=== PATIENT | female | born 1965 | race Caucasian/White ===

== ENCOUNTER → 2016-05-26 | Day surgery (SDC) | payer OTHER ==
[2016-05-08 12:04] VITALS: BP 156/79
--- NOTE | 2016-05-15 15:28 | HP ---
ADMIT DATE: CHIEF COMPLAINT: Right nipple discharge. HISTORY OF PRESENT ILLNESS: The patient presents with a 2-year history of palpable right breast mass under her right nipple. One month ago, she noticed the onset of intermittent bloody discharge from her right nipple with some associated tenderness. She denies any other symptoms at this time including fever, chills, nausea, vomiting. The patient has a history of hypertension, for which she takes medications on a daily basis. She also has a history of arthritis and a small heart murmur, for which she takes a baby aspirin daily. She has a history of asthma and has two different types of inhalers that she uses as needed. The patient has no previous history of surgery on her breast. FAMILY HISTORY: Positive for mother who had a breast mass removed that was not cancerous. ALLERGIES: She reports an allergy to steroid medication, says that her skin gets very red when she takes steroids. PHYSICAL EXAMINATION: HEAD AND NECK: Grossly normal. HEART: Regular rate, about 70 beats per minutes, regular rhythm, no murmurs heard. LUNGS: Clear to auscultation bilaterally. No wheezes. BREASTS: Her right breast has slight tenderness around the areola with no palpable mass or discharge at this time. The patient did have a ductogram, which showed small densities under the right areola. We have discussed the benefits and complications involved with surgery with the patient and she agrees with these. DIAGNOSES: Bloody nipple discharge, hypertension and arthritis. ROJELIO CRANE MD DR: JOHNATHAN/evan JOB#: [id number] / [id number]
[~2016-05-26] VITALS: Ht 170.2 cm; Wt 81.6 kg
[~2016-05-26] MED LIST: ASPI81TA2 PO; ATOR40TA PO; CEFAZOLIN 1GM IVPB FOR OMNI 50 ML IV PRN; CONTRAST GIVEN MC PRN; CYCL10TA2 PO; FENTANYL PF 100 MCG/2 ML VIAL. IV PRN; FERR-26 PO; FLUT1DIS IH; HYDR-971 PO; IOHEXOL 300 MG/ML 50 ML VIAL. IJ ONE; IV RINGERS,LACTATED 1000ML 1,000 ML IV SCH; LIDOCAINE 1% / SOD BICARB 8.4% 20 ML VIAL. IJ ONE; LIDOCAINE 1% 1 ML SYRINGE. ID PRN; MELO-150 PO; METHYLENE BLUE 1% 1 ML VIAL. IJ ONE; OMEP40CA5 PO; ONDANSETRON PF 4 MG/2 ML VIAL. IV PRN; PROAIR HFA8.5 GM INH; PROCHLORPERAZINE 10 MG/2 ML VIAL. IV PRN; [UNRECOGNIZED DRUG - REMARK] PO
--- NOTE | 2016-05-26 10:24 | PDOC ---
SURGICAL PROGRESS NOTE Subjective SURGERY CANCELLED DUE TO SIGNIFICANT CARDIAC ISSUES. Charge Loader to see her this am. ROJELIO CRANE MD May 26, 2016 10:24
--- NOTE | 2016-05-26 11:40 | CARD ---
APPROVED REPORT EXAM: Two-dimensional and M-mode echocardiogram with Doppler and color Doppler. Other Information Quality : Average Rhythm : Tachycardia INDICATION Murmur tachycardia 2D DIMENSIONS RVDd2.3 (2.9-3.5cm)Left Atrium(2D)2.8 (1.6-4.0cm) IVSd0.9 (0.7-1.1cm)Aortic Root(2D)3.0 (2.0-3.7cm) LVDd4.7 (3.9-5.9cm)LVOT Diameter2.2 (1.8-2.4cm) PWd0.9 (0.7-1.1cm)LVDs3.8 (2.5-4.0cm) FS (%) 19.8 %SV41.5 ml LVEF(%)40.0 (>50%) Aortic Valve AoV Peak Stew.107.7cm/sAoV VTI18.8cm AO Peak GR.4.6mmHgLVOT VTI 16.33cm AO Mean GR.3mmHgAVA (VTI)3.20cm2 Mitral Valve MV E Jjvsdllm44.5cm/sMV E Peak Gr.5mmHg MV DECEL [id number] A Palhgbga67.8cm/s E/A Ratio1.6 TDI Lateral E' P. V14.55cm/sMedial E' P. V13.32cm/s E/Lateral E'5.9E/Medial E'6.5 Tricuspid Valve TR P. Vooqlmqg321kt/sRAP TUPLIMCF2ioTq TR Peak Gr.12ifDmJIVS08ozIi LEFT VENTRICLE The left ventricle is normal size. There is normal left ventricular wall thickness. Left ventricle sy stolic function is mildl to moderately impaired. The Ejection Fraction is 40%. There is global hypoki nesis of the left ventricle. RIGHT VENTRICLE The right ventricle is normal size. The right ventricular systolic function is normal. ATRIA The left atrium size is normal. The right atrium size is normal. The interatrial septum is intact wit h no evidence for an atrial septal defect or patent foramen ovale as noted on 2-D or Doppler imaging. AORTIC VALVE The aortic valve is normal in structure and function. The aortic valve is trileaflet. Doppler and Col or Flow revealed no significant aortic regurgitation. There is no significant aortic valvular stenosi s. MITRAL VALVE The mitral valve is normal in structure. There is no mitral valve stenosis. Doppler and Color Flow re vealed trace mitral regurgitation. TRICUSPID VALVE The tricuspid valve is normal in structure. Doppler and Color Flow revealed trace tricuspid regurgita tion. The PA pressure was estimated at 18 mmHg. There is no tricuspid valve stenosis. PULMONIC VALVE The pulmonic valve is not well visualized. Doppler and Color Flow revealed no pulmonic valvular regur gitation. There is no pulmonic valvular stenosis. GREAT VESSELS The aortic root is normal in size. The IVC is normal in size and collapses >50% with inspiration. PERICARDIAL EFFUSION There is a small amount of pericardial effusion. Critical Notification Critical Value: No <Conclusion> Left ventricle systolic function is mildl to moderately impaired. The Ejection Fraction is 40%. The left atrium size is normal. The right atrium size is normal. The aortic valve is normal in structure and function. The aortic valve is trileaflet. Doppler and Color Flow revealed trace mitral regurgitation. Doppler and Color Flow revealed trace tricuspid regurgitation. The PA pressure was estimated at 18 mmHg. The pulmonic valve is not well visualized. There is a small amount of pericardial effusion.
--- NOTE | 2016-05-26 12:36 | EKG ---
[facility] [address] [place] [address] Test Date: 2016-05-26 Test Time: 12:18:56 Pat Name: KARLY DENNY Department: Room: Gender: F Review Scheduling Coordinator: SALTY : 1965 Requested By: ROJELIO CRANE Order Number: [id number] Reading MD: Geo Flores Measurements Intervals [place] Rate: 100 P: 58 AK: 166 QRS: 20 QRSD: 92 T: 15 QT: 344 QTc: 447 Interpretive Statements SINUS RHYTHM Electronically Signed On 05-26-2016 15:19:45 AGRICULTURAL SYSTEMS SPECIALIST by Geo Flores
--- NOTE | 2016-05-26 14:30 | EKG ---
[facility] [address] [place] [address] Test Date: 2016-05-26 Test Time: 12:50:31 Pat Name: KARLY DENNY Department: Room: Gender: F [employer]: SALTY : 1965 Requested By: ROJELIO CRANE Order Number: [id number] Reading MD: Geo Flores Measurements Intervals [place] Rate: 67 P: 34 AK: 148 QRS: 18 QRSD: 80 T: 36 QT: 370 QTc: 394 Interpretive Statements SINUS RHYTHM Electronically Signed On 05-26-2016 15:20:19 CASE MANAGEMENT RN by Geo Flores
== END | disposition home or self-care (01) ==
LOC: SURG 06:43
PROVIDERS: ATTEND Specialist
DX: Z53.9 Procedure and treatment not carried out, unspecified reason (principal)
CPT/HCPCS: 93005; 93306

== ENCOUNTER → 2016-05-30 | Outpatient (CLI) | payer OTHER ==
[2016-05-08 12:04] VITALS: BP 156/79
[~2016-05-30] MED LIST changes: -CEFAZOLIN 1GM IVPB FOR OMNI 50 ML IV PRN; -CONTRAST GIVEN MC PRN; -FENTANYL PF 100 MCG/2 ML VIAL. IV PRN; -IOHEXOL 300 MG/ML 50 ML VIAL. IJ ONE; -IV RINGERS,LACTATED 1000ML 1,000 ML IV SCH; -LIDOCAINE 1% / SOD BICARB 8.4% 20 ML VIAL. IJ ONE; -LIDOCAINE 1% 1 ML SYRINGE. ID PRN; -METHYLENE BLUE 1% 1 ML VIAL. IJ ONE; -ONDANSETRON PF 4 MG/2 ML VIAL. IV PRN; -PROCHLORPERAZINE 10 MG/2 ML VIAL. IV PRN; +REGADENOSON 0.4 MG/5 ML DISP.SYRIN. IV ONE
--- NOTE | 2016-05-30 20:10 | RAD ---
APPROVED REPORT Test Type: Pharmacological Stress Nurse/Tech: Alejandra Alegre R.N. Test Indications: Pre-op for breast surgery Cardiac History: Family hx of CAD, HTN, ST Medications: SEE EMR Medical History: Seizures Resting ECG: ST Resting Heart Rate: 132/76 bpm Resting Blood Pressure: 132/76mmHg Pretest Chest Pain: None Nurse/Tech Notes S1S2, lungs CTA, denied chest pain or SOA. Pt states that she has baseline tachycardia. Consent: The procedure was explained to the patient in lay terms. Informed consent was witnessed. Song eout was entered into [employer]. History and Stress Test performed by Alejandra Alegre R.N. Pharm. Details Pharmacologic stress testing was performed using 0.4mg per 5ml of regadenoson given intravenously ove r 7-10 seconds. Stress Symptoms Slightly SOA. POST EXERCISE Reason for Termination: Patient request, Infusion complete Max HR: 142 bpm Max Blood Pressure: 156/84mmHg Blood Pressure response to exercise: Normal blood pressure response during stress. Heart Rate response to exercise: Normal Chest Pain: No. Arrhythmia: No. ST Change: No. INTERPRETATION Stress EKG Conclusion: No acute changes were noted. Imaging Protocol IMAGE PROTOCOL: Rest Tc-99m/stress Tc-99m 1 day Rest: Stress: Viability: Radiopharm.Tc99m MvdglccvsEn41r Sestamibi Uwuu09zQf 35mCi Duration 15min. 10min. Img Date 05/30/2016 05/30/2016 Inj-Img Jgps41xmq. 60min. Rest Admin Site:IV - Right AntecubitalAdministrator:RT Tim (R)(N) Stress Admin Site: IV - Right AntecubitalAdministrator: ADRIAN Rivera STRESS DATA End Diast. Vol.105.0mlAv. Heart Ippo843.0bpm End Syst. Vol.56.0mlCO Index BSA0.0L/min Myocardial Fpcz030.0gEject. Ouprsyqs54.0% Stress Rates Pk. Fill Rate4.85EDV/secLVtime Pk. Fill 150.79msec Pk. Empty Rate4.30ESV/secLVtime Pk. Eject86.21msec 04/29 Pk. Fill0.66EDV/sec Stress Scores Regional WT2.00Summed WT20.00 Regional WM0.00Summed WM18.00 LV Perf. Quant 17 Seg. SSS1.00 17 Seg. SRS3.00 17 Seg. SDS0.00 Stress Defect Extent (% LAD)0.00Rest Defect Extent (% LAD)0.00Rev. Defect Extent (% LAD)0.00 Stress Defect Extent (% LCX) 0.00Rest Defect Extent (% LCX)13.80Rev. Defect Extent (% LCX)0.00 Stress Defect Extent (% RCA)0.00Rest Defect Extent (% RCA)0.00Rev. Defect Extent (% RCA)0.00 Stress Defect Extent (% REY)0.00Rest Defect Extent (% REY)2.40Rev. Defect Extent (% REY)0.00 Conclusion 1. Sinus tachycardia. No electrocardiographic changes suggestive of myocardial ischemia with pharmaco logical stresss 2. No perfusion defects to suggest myocardial ischemia or scar 3. A diffuse decrease in wall motionn with an ejection fraction of 47%. 4. Scan indicates low risk for futurecardiac events.
== END | disposition home or self-care (01) ==
LOC: NM 07:34
PROVIDERS: ATTEND Internal Medicine Cardiovascular Disease
DX: Z01.818 Encounter for other preprocedural examination (principal); I10 Essential (primary) hypertension; I42.9 Cardiomyopathy, unspecified
CPT/HCPCS: 78452; 93017; 96374; 96375; 96376; A9500; J2785

== ENCOUNTER 2016-07-24 09:43 | Day surgery (SDC) | payer OTHER ==
--- NOTE | 2016-07-23 15:04 | HP ---
ADMIT DATE: 07/24/2016 HISTORY OF PRESENT ILLNESS: The patient has had nipple discharge and this is why she is admitted. She has about a 2-year history of a palpable mass in the right inferior portion of the nipple. About 2-3 months ago, she noted the onset of intermittent bloody discharge from her right nipple and had some mild tenderness. She denies any other symptoms and has not had fever, chills, vomiting etc. PAST MEDICAL AND SURGICAL HISTORY: She has a history of hypertension, which she now takes medicine for and is controlled. We aborted the previous surgery because of lack of control of her blood pressure. She also has history of arthritis and heart murmur and she takes a baby aspirin a day, which she had stopped. She does have asthma and has two different types of inhalers that she takes for that. No surgeries on the breast prior to this. FAMILY HISTORY: Positive in that she has a mother who had a cancer of the breast and apparently had a mastectomy. ALLERGIES: APPEARED TO BE TO STEROIDS. SHE SAYS SHE BREAKS OUT ON A RASH WHEN SHE TAKES THAT. SOCIAL HISTORY: She does not drink, smoke or use illicit drugs. PHYSICAL EXAMINATION: HEENT: Grossly normal. HEART: Regular rate of 72 beats per minute. No murmurs or other abnormalities were noted with the heart. LUNGS: Clear bilaterally to auscultation and no wheezing were noted. BREASTS: The breasts had no tenderness, no masses and no discharge at this time. 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 We did discuss the surgery with the patient and she wishes to have it done. DIAGNOSES: 1. Hypertension. 2. Arthritis. 3. Papillary neoplasms of the breast. All the symptoms have been in the right breast. ROJELIO CRANE MD DR: JOHNATHAN/evan JOB#: [id number] / [id number]
[~2016-07-24 09:43] MED LIST changes: +FENTANYL PF 100 MCG/2 ML VIAL. IV PRN; +IOHEXOL 300 MG/ML 50 ML VIAL. IJ ONE; +IV RINGERS,LACTATED 1000ML 1,000 ML IV SCH; +LIDOCAINE 1% 1 ML SYRINGE. ID PRN; +METHYLENE BLUE 1% 1 ML VIAL. IJ ONE; +METHYLENE BLUE 1% 1 ML VIAL. ONE; +ONDANSETRON PF 4 MG/2 ML VIAL. IV PRN; +PROCHLORPERAZINE 10 MG/2 ML VIAL. IV PRN; -REGADENOSON 0.4 MG/5 ML DISP.SYRIN. IV ONE
[2016-07-24 10:32] LABS: BASO # 0.1 x10^3/uL (0.0-0.2); BASO % 1 % (0-3); EOS % 3 % (0-3); HEMATOCRIT 40.3 % (36.0-47.0); LYMPH # 2.6 x10^3/uL (1.0-4.8); LYMPH % 29 % (24-48); MEAN CORPUSCULAR HEMOGLOBIN 30 pg (25-35); MEAN CORPUSCULAR HGB CONC 35 g/dL (31-37); MEAN CORPUSCULAR VOLUME 85 fL (79-100); MONO % 8 % (0-9); NEUT % 60 % (31-73); PLATELET COUNT 311 x10^3/uL (140-400); RED BLOOD COUNT 4.76 x10^6/uL (3.50-5.40); RED CELL DISTRIBUTION WIDTH 12.8 % (11.5-14.5); WHITE BLOOD COUNT 9.1 x10^3/uL (4.0-11.0)
[2016-07-24 10:40] LABS: NEG OBC UR NEG; POS OBC UR POS
[2016-07-24 10:43] LABS: INR 1.1 (0.8-1.1); PROTHROMBIN TIME PATIENT 13.1 SEC (11.7-14.0)
[2016-07-24 11:06] LABS: CALCIUM 8.7 mg/dL (8.5-10.1); CREATININE 0.8 mg/dL (0.6-1.0); POTASSIUM 3.5 mmol/L (3.5-5.1)
[2016-07-24 11:08] LABS: ALBUMIN 3.6 g/dL (3.4-5.0); ALBUMIN/GLOBULIN RATIO 1.1 (1.0-1.7); TOTAL BILIRUBIN 1.1 mg/dL (0.2-1.0)
--- NOTE | 2016-07-24 11:43 | PDOC ---
SURGICAL PROGRESS NOTE Subjective No change in dictated H+P. Labs Laboratory Tests Test 07/24/16 10:14 White Blood Count 9.1x10^3/uL (4.0-11.0) Red Blood Count 4.76x10^6/uL (3.50-5.40) Hemoglobin 14.0g/dL (12.0-15.5) Hematocrit 40.3% (36.0-47.0) Mean Corpuscular Volume 85fL (79-100) Mean Corpuscular Hemoglobin 30pg (25-35) Mean Corpuscular Hemoglobin Concent 35g/dL (31-37) Red Cell Distribution Width 12.8% (11.5-14.5) Platelet Count 311x10^3/uL (140-400) Neutrophils (%) (Auto) 60% (31-73) Lymphocytes (%) (Auto) 29% (24-48) Monocytes (%) (Auto) 8% (0-9) Eosinophils (%) (Auto) 3% (0-3) Basophils (%) (Auto) 1% (0-3) Neutrophils # (Auto) 5.5x10^3uL (1.8-7.7) Lymphocytes # (Auto) 2.6x10^3/uL (1.0-4.8) Monocytes # (Auto) 0.7x10^3/uL (0.0-1.1) Eosinophils # (Auto) 0.2x10^3/uL (0.0-0.7) Basophils # (Auto) 0.1x10^3/uL (0.0-0.2) Prothrombin Time 13.1SEC (11.7-14.0) Prothromb Time International Ratio 1.1 (0.8-1.1) Urine Test Negative (NEG) Sodium Level 142mmol/L (136-145) Potassium Level 3.5mmol/L (3.5-5.1) Chloride Level 103mmol/L (98-107) Carbon Dioxide Level 30mmol/L (21-32) Anion Gap 9 (6-14) Blood Urea Nitrogen 14mg/dL (7-20) Creatinine 0.8mg/dL (0.6-1.0) Estimated GFR (Cockcroft-Gault) 75.0 BUN/Creatinine Ratio 18 (6-20) Glucose Level 143mg/dL (70-99) Calcium Level 8.7mg/dL (8.5-10.1) Total Bilirubin 1.1mg/dL (0.2-1.0) Aspartate Amino Transf (AST/SGOT) 18U/L (15-37) Alanine Aminotransferase (ALT/SGPT) 20U/L (14-59) Alkaline Phosphatase 68U/L (46-116) Total Protein 7.0g/dL (6.4-8.2) Albumin 3.6g/dL (3.4-5.0) Albumin/Globulin Ratio 1.1 (1.0-1.7) Laboratory Tests Test 07/24/16 10:14 White Blood Count 9.1x10^3/uL (4.0-11.0) Red Blood Count 4.76x10^6/uL (3.50-5.40) Hemoglobin 14.0g/dL (12.0-15.5) Hematocrit 40.3% (36.0-47.0) Mean Corpuscular Volume 85fL (79-100) Mean Corpuscular Hemoglobin 30pg (25-35) Mean Corpuscular Hemoglobin Concent 35g/dL (31-37) Red Cell Distribution Width 12.8% (11.5-14.5) Platelet Count 311x10^3/uL (140-400) Neutrophils (%) (Auto) 60% (31-73) Lymphocytes (%) (Auto) 29% (24-48) Monocytes (%) (Auto) 8% (0-9) Eosinophils (%) (Auto) 3% (0-3) Basophils (%) (Auto) 1% (0-3) Neutrophils # (Auto) 5.5x10^3uL (1.8-7.7) Lymphocytes # (Auto) 2.6x10^3/uL (1.0-4.8) Monocytes # (Auto) 0.7x10^3/uL (0.0-1.1) Eosinophils # (Auto) 0.2x10^3/uL (0.0-0.7) Basophils # (Auto) 0.1x10^3/uL (0.0-0.2) Prothrombin Time 13.1SEC (11.7-14.0) Prothromb Time International Ratio 1.1 (0.8-1.1) Urine Test Negative (NEG) Sodium Level 142mmol/L (136-145) Potassium Level 3.5mmol/L (3.5-5.1) Chloride Level 103mmol/L (98-107) Carbon Dioxide Level 30mmol/L (21-32) Anion Gap 9 (6-14) Blood Urea Nitrogen 14mg/dL (7-20) Creatinine 0.8mg/dL (0.6-1.0) Estimated GFR (Cockcroft-Gault) 75.0 BUN/Creatinine Ratio 18 (6-20) Glucose Level 143mg/dL (70-99) Calcium Level 8.7mg/dL (8.5-10.1) Total Bilirubin 1.1mg/dL (0.2-1.0) Aspartate Amino Transf (AST/SGOT) 18U/L (15-37) Alanine Aminotransferase (ALT/SGPT) 20U/L (14-59) Alkaline Phosphatase 68U/L (46-116) Total Protein 7.0g/dL (6.4-8.2) Albumin 3.6g/dL (3.4-5.0) Albumin/Globulin Ratio 1.1 (1.0-1.7) ROJELIO CRANE MD Jul 24, 2016 11:43
--- NOTE | 2016-07-24 11:46 | PDOC ---
SURGICAL PROGRESS NOTE Subjective Surgeon........................................Crane Pre-op diagnosis............................Mass right breast Post-op diagnosis..........................Mass right breast Anesthesia....................................General Procedure.....................................Breast mass removal Drains...........................................none Fluids............................................See anesthesia Blood loss.....................................15cc Condition.......................................Satisfactory Labs Laboratory Tests Test 07/24/16 10:14 White Blood Count 9.1x10^3/uL (4.0-11.0) Red Blood Count 4.76x10^6/uL (3.50-5.40) Hemoglobin 14.0g/dL (12.0-15.5) Hematocrit 40.3% (36.0-47.0) Mean Corpuscular Volume 85fL (79-100) Mean Corpuscular Hemoglobin 30pg (25-35) Mean Corpuscular Hemoglobin Concent 35g/dL (31-37) Red Cell Distribution Width 12.8% (11.5-14.5) Platelet Count 311x10^3/uL (140-400) Neutrophils (%) (Auto) 60% (31-73) Lymphocytes (%) (Auto) 29% (24-48) Monocytes (%) (Auto) 8% (0-9) Eosinophils (%) (Auto) 3% (0-3) Basophils (%) (Auto) 1% (0-3) Neutrophils # (Auto) 5.5x10^3uL (1.8-7.7) Lymphocytes # (Auto) 2.6x10^3/uL (1.0-4.8) Monocytes # (Auto) 0.7x10^3/uL (0.0-1.1) Eosinophils # (Auto) 0.2x10^3/uL (0.0-0.7) Basophils # (Auto) 0.1x10^3/uL (0.0-0.2) Prothrombin Time 13.1SEC (11.7-14.0) Prothromb Time International Ratio 1.1 (0.8-1.1) Urine Test Negative (NEG) Sodium Level 142mmol/L (136-145) Potassium Level 3.5mmol/L (3.5-5.1) Chloride Level 103mmol/L (98-107) Carbon Dioxide Level 30mmol/L (21-32) Anion Gap 9 (6-14) Blood Urea Nitrogen 14mg/dL (7-20) Creatinine 0.8mg/dL (0.6-1.0) Estimated GFR (Cockcroft-Gault) 75.0 BUN/Creatinine Ratio 18 (6-20) Glucose Level 143mg/dL (70-99) Calcium Level 8.7mg/dL (8.5-10.1) Total Bilirubin 1.1mg/dL (0.2-1.0) Aspartate Amino Transf (AST/SGOT) 18U/L (15-37) Alanine Aminotransferase (ALT/SGPT) 20U/L (14-59) Alkaline Phosphatase 68U/L (46-116) Total Protein 7.0g/dL (6.4-8.2) Albumin 3.6g/dL (3.4-5.0) Albumin/Globulin Ratio 1.1 (1.0-1.7) Laboratory Tests Test 07/24/16 10:14 White Blood Count 9.1x10^3/uL (4.0-11.0) Red Blood Count 4.76x10^6/uL (3.50-5.40) Hemoglobin 14.0g/dL (12.0-15.5) Hematocrit 40.3% (36.0-47.0) Mean Corpuscular Volume 85fL (79-100) Mean Corpuscular Hemoglobin 30pg (25-35) Mean Corpuscular Hemoglobin Concent 35g/dL (31-37) Red Cell Distribution Width 12.8% (11.5-14.5) Platelet Count 311x10^3/uL (140-400) Neutrophils (%) (Auto) 60% (31-73) Lymphocytes (%) (Auto) 29% (24-48) Monocytes (%) (Auto) 8% (0-9) Eosinophils (%) (Auto) 3% (0-3) Basophils (%) (Auto) 1% (0-3) Neutrophils # (Auto) 5.5x10^3uL (1.8-7.7) Lymphocytes # (Auto) 2.6x10^3/uL (1.0-4.8) Monocytes # (Auto) 0.7x10^3/uL (0.0-1.1) Eosinophils # (Auto) 0.2x10^3/uL (0.0-0.7) Basophils # (Auto) 0.1x10^3/uL (0.0-0.2) Prothrombin Time 13.1SEC (11.7-14.0) Prothromb Time International Ratio 1.1 (0.8-1.1) Urine Test Negative (NEG) Sodium Level 142mmol/L (136-145) Potassium Level 3.5mmol/L (3.5-5.1) Chloride Level 103mmol/L (98-107) Carbon Dioxide Level 30mmol/L (21-32) Anion Gap 9 (6-14) Blood Urea Nitrogen 14mg/dL (7-20) Creatinine 0.8mg/dL (0.6-1.0) Estimated GFR (Cockcroft-Gault) 75.0 BUN/Creatinine Ratio 18 (6-20) Glucose Level 143mg/dL (70-99) Calcium Level 8.7mg/dL (8.5-10.1) Total Bilirubin 1.1mg/dL (0.2-1.0) Aspartate Amino Transf (AST/SGOT) 18U/L (15-37) Alanine Aminotransferase (ALT/SGPT) 20U/L (14-59) Alkaline Phosphatase 68U/L (46-116) Total Protein 7.0g/dL (6.4-8.2) Albumin 3.6g/dL (3.4-5.0) Albumin/Globulin Ratio 1.1 (1.0-1.7) ROJELIO CRANE MD Jul 24, 2016 11:46
[2016-07-24] MEDS ORDERED: CEFAZOLIN 1GM IVPB FOR OMNI 50 ML IV ONE ×2 (12:03→12:15)
[2016-07-24] MEDS ORDERED: DEXAMETHASONE SOD PHOS 20 MG/5 ML VIAL. ONE (12:16)
[2016-07-24] MEDS ORDERED: ONDANSETRON PF 4 MG/2 ML VIAL. ONE (12:16)
[2016-07-24] MEDS ORDERED: MIDAZOLAM HCL/PF 2 MG/2 ML VIAL. ONE (12:16)
[2016-07-24] MEDS ORDERED: LIDOCAINE 2% 100 MG/5 ML DISP.SYRIN. ONE (12:16)
[2016-07-24] MEDS ORDERED: PROPOFOL 20 ML IV ONE (12:16)
[2016-07-24] MEDS ORDERED: FENTANYL PF 100 MCG/2 ML VIAL. ONE (12:17)
[2016-07-24] MEDS ORDERED: SEVOFLURANE 61 TO 120 MINUTES. IH ONE (13:19)
[2016-07-24] MEDS ORDERED: PHENYLEPHRINE in 0.9% NACL PF 1 MG/10 ML DISP.SYRIN. IV ONE (13:30)
--- NOTE | 2016-07-24 14:06 | RAD ---
EXAM: Right breast galactogram; right breast needle-wire localization; surgical specimen radiograph. 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 TECHNIQUE: The risks of the procedure were discussed with the patient and written and verbal consent was obtained. A timeout was performed. The right nipple and skin surrounding the right nipple was sterilely prepped and draped. A small amount of blood-tinged fluid was expressed from a duct within the nipple. This duct was cannulated with a blunt-tipped 30-gauge needle. 1 cc of contrast mixed with methylene blue was injected. Craniocaudal and true lateral images were obtained, demonstrating opacification of irregular dilated ducts predominantly within the retroareolar to 6:00 positions. There is persistent contrast within acini within the 6:00 position at mid to posterior depth from the prior exam. The skin overlying the medial breast with an prepped and infiltrated with 1% lidocaine. A needle was advanced through and slightly beyond the posterior margin of the main region of ductal dilatation from a medial approach. A wire was deployed in this location. Appropriate wire positioning was confirmed by the presence of methylene blue on the needle tip following wire deployment. Full field digital chronic caudal and true lateral images were obtained. The wire was secured to the skin surface. The patient was then transferred to the operative suite. A surgical specimen radiograph demonstrates inclusion of the wire and surrounding density consistent with a portion of the aforementioned dilated ducts. IMPRESSION: 1. Successful galactogram with methylene blue injection, demonstrating multiple dilated irregular ducts predominantly from the retroareolar to 6:00 positions within the anterior breast. 2. Needle-wire localization with the wire tip along the lateral most aspect of the abnormal ducts and along the posterior aspect of the majority of the abnormal ducts at the conclusion of a large component of these ducts with a surgical specimen.
[2016-07-24] MEDS ORDERED: HYDROCODONE/APAP 5/325MG TABLET. PO ONE (14:30)
[2016-07-24 15:15] VITALS: BP 111/68
--- NOTE | 2016-07-25 01:23 | OP ---
DATE OF SURGERY: 07/24/2016 SURGEON: Rajesh Crane MD PREOPERATIVE DIAGNOSIS: Masses of right breast. POSTOPERATIVE DIAGNOSIS: Masses of right breast. ANESTHESIA: General. PROCEDURE: Excision of masses, right breast via needle localization. TECHNIQUE: Under general anesthesia, the patient was properly prepped and draped in a routine fashion. We had gone over the x-rays as the patient had a lot of ductal problems and masses and these were actually localized by the radiologist and a guidewire placed just posterior to them as they were under the nipple. She injected methylene blue through the nipple and the ducts were given methylene blue. The guidewire was medial to the nipple at about the 3 o'clock position by about an inch. We decided we will go around the circumareolar area so that we have a good cosmetic result. As such, we made an incision between about the 11 and 5 o'clock position with a 15 blade. We went through the skin with the blade. We then went into the subQ and then with retractor Jermain, we were able to retract the skin and go into the subQ over to the guidewire, delivered the guidewire into the wound and then used Jermain retractors and then Blackburn's as we got further in as we clamped the tissue around the guidewire in the guidewire, pulled it up slightly and then divided the tissue around the guidewire. As we got deeper, we saw a lot of methylene blue in the ducts under the nipple and we included all of the area that we saw that had methylene blue. This was where the problem was and we then slowly used cautery to go around there. One or two bleeders were cauterized and we slowly excised all this from the underside of the nipple. We excised all the breast tissue and all the methylene blue where the guidewire was. This having been done, we then inspected the wound. There was no further bleeding and we sent specimen to x-ray. As the lesion could not be seen on x-ray, it could not be determined, but the radiologist did say that she was sure that "I got the area out as I had where the ducts were, where the methylene blue had stained." We then proceeded to close the wound; 4-0 and 3-0 Vicryl interrupted were used to close the layers deep in the breast tissue to approximate them and then the skin was closed using a subcuticular 5-0 Vicryl. Procedure was then terminated as a sterile dressing was applied. ESTIMATED BLOOD LOSS: Probably less than 10-15 mL. DRAINS: No drains were used. FLUIDS GIVEN: Can be obtained from the anesthesia sheet. CONDITION OF THE PATIENT: Satisfactory as she is returned to the recovery room. RAJESH CRANE MD DR: JOHNATHAN/evan JOB#: [id number] / [id number]
== END 2016-07-24 15:30 | disposition home or self-care (01) ==
LOC: SURG 09:43
PROVIDERS: ATTEND Specialist
DX: N63 Unspecified lump in breast (principal); E78.00 Pure hypercholesterolemia, unspecified; I10 Essential (primary) hypertension; J45.909 Unspecified asthma, uncomplicated; E66.9 Obesity, unspecified; M19.90 Unspecified osteoarthritis, unspecified site; K21.9 Gastro-esophageal reflux disease without esophagitis; Z98.51 Tubal ligation status; Z90.49 Acquired absence of other specified parts of digestive tract; Z79.01 Long term (current) use of anticoagulants
CPT/HCPCS: 19030; 19125; 19281; 36415; 76098; 77053; 80053; 81025; 85027; 85610; J0690; J1100; J2250; J2370; J2405; J2704; J3010; Q9967; Q9968

== ENCOUNTER 2016-11-07 11:36 | Emergency (ER) | payer OTHER ==
[~2016-11-07] VITALS: Ht 170.2 cm; Wt 81.6 kg
[~2016-11-07 11:36] MED LIST changes: +ASPI-630 PO; -ASPI81TA2 PO; -FENTANYL PF 100 MCG/2 ML VIAL. IV PRN; -IOHEXOL 300 MG/ML 50 ML VIAL. IJ ONE; -IV RINGERS,LACTATED 1000ML 1,000 ML IV SCH; -LIDOCAINE 1% 1 ML SYRINGE. ID PRN; -MELO-150 PO; +MELO15TA23 PO; -METHYLENE BLUE 1% 1 ML VIAL. IJ ONE; -METHYLENE BLUE 1% 1 ML VIAL. ONE; -ONDANSETRON PF 4 MG/2 ML VIAL. IV PRN; -PROCHLORPERAZINE 10 MG/2 ML VIAL. IV PRN
--- NOTE | 2016-11-07 12:05 | RAD ---
Exam: Left knee radiograph 11/07/2016 1157 hours Indication: Knee pain Comparison: Left knee radiograph 08/20/2015 Technique: 4 views of the left knee are provided. Findings: Stable appearance of medial joint space narrowing. There is medial and lateral femorotibial osteophytosis. Patellofemoral osteophytosis is present. No acute fracture or dislocation. Patella is well seated within the femoral trochlea. No significant knee joint effusion. Impression: No acute fracture or dislocation. Mild osteoarthrosis of the left knee, stable dating back to 08/20/2015.
[2016-11-07 12:20] VITALS: BP 142/89
[2016-11-07] MEDS ORDERED: HYDR-971 PO (12:39)
--- NOTE | 2016-11-07 12:41 | PHYS DOC ---
Past Medical History Past Medical History: Asthma, GERD, Hypertension, Other Additional Past Medical Histor: CYST IN RIGHT BREAST, IRREGULAR HEART BEAT Past Surgical History: Cholecystectomy, Tubal ligation Alcohol Use: Occasionally Drug Use: None Adult General Chief Complaint Chief Complaint: KNEE SWELLING HPI HPI Patient is a 51 year old female with history of hypertension, high cholesterol , asthma, arthritis to the left knee, who presents today with moderate pain to the left knee. She states this pain has been worse in the last 2 days. Patient denies any known injury. Review of Systems Review of Systems Constitutional: Denies fever or chills [] Musculoskeletal: Left knee pain Integument: Denies rash or skin lesions [] Neurologic: Denies headache, focal weakness or sensory changes [] Endocrine: Denies polyuria or polydipsia [] Allergies Allergies Allergies Coded Allergies Type Severity Reaction Last Updated Verified meclizine Allergy Intermediate Itching 07/24/16 Yes prednisone Allergy Intermediate Itching 07/24/16 Yes tramadol Allergy Intermediate 07/24/16 Yes Physical Exam Physical Exam Constitutional: Well developed, well nourished, no acute distress, non-toxic appearance. [] Skin: Warm, dry, no erythema, no rash. [] Back: No tenderness, no CVA tenderness. [] Extremities: Left knee with no obvious deformity, no obvious edema or ecchymosis. Tenderness diffusely on palpation of the left anterior knee. Negative Jassi sign and negative Jaky's sign negative anterior-posterior drawer sign. Patient able to hold the left knee straight with no difficulties. + 2 left pedal pulse. Cap refill less than 2 seconds and left lower extremity. Sensation intact to the left lower extremity. Neurologic: Alert and oriented X 3, normal motor function, normal sensory function, no focal deficits noted. [] Psychologic: Affect normal, judgement normal, mood normal. [] EKG EKG [] Radiology/Procedures Radiology/Procedures []PROCEDURE: KNEE LEFT 4V Exam: Left knee radiograph 11/07/2016 1157 hours Indication: Knee pain Comparison: Left knee radiograph 08/20/2015 Technique: 4 views of the left knee are provided. Findings: Stable appearance of medial joint space narrowing. There is medial and lateral femorotibial osteophytosis. Patellofemoral osteophytosis is present. No acute fracture or dislocation. Patella is well seated within the femoral trochlea. No significant knee joint effusion. Impression: No acute fracture or dislocation. Mild osteoarthrosis of the left knee, stable dating back to 08/20/2015. DICTATED and SIGNED BY: MITCH FRANZ MD DATE: 11/07/16 1201 CC: ONEIL DOMINGUEZ; CHRISTINE KUMAR APRN ~ Course & Med Decision Making Course & Med Decision Making Pertinent Labs and Imaging studies reviewed. (See chart for details) Patient is in the ED with exacerbation of chronic left knee pain. No known injury. X-rays of the left knee interpreted by radiologist were negative for any acute findings but noted for mild osteoarthritis of the left knee. Discharged with instructions to follow-up with an orthopedic doctor which we provided. Dragon Disclaimer Dragon Disclaimer This electronic medical record was generated, in whole or in part, using a voice recognition dictation system. Departure Departure Impression: Primary Impression: Degenerative joint disease of knee, left Disposition: 01 HOME, SELF-CARE Condition: STABLE Referrals: NO PCP (PCP) JEANNIE CESAR MD follow up as soon as you can Patient Instructions: Arthritis, Degenerative-Brief Additional Instructions: You were seen with arthritis of the left knee. Ice and elevate the extremity. Follow-up with the provided orthopedic doctor in the next 1-2 weeks. Take the prescribed pain medicine as needed. Scripts Hydrocodone/Apap 5-325 (NORCO 5-325 TABLET) 1 Each Tablet 1 TAB PO PRN Q6HRS Y for PAIN, #10 TAB 0 Refills DO NOT FILL IF SHE HAS HARD NARCOTICS RX FILLED IN THE LAST SEVEN DAYS Prov: CHRISTINE KUMAR APRN 11/07/16 Problem Qualifiers Primary Impression: Degenerative joint disease of knee, left Osteoarthritis type: unspecified Qualified Codes: M17.12 - Unilateral primary osteoarthritis, left knee CHRISTINE KUMAR APRN Nov 07, 2016 12:41
== END 2016-11-07 12:50 | disposition home or self-care (01) ==
LOC: ER 11:36
DX: M17.12 Unilateral primary osteoarthritis, left knee (principal); E78.00 Pure hypercholesterolemia, unspecified; G89.29 Other chronic pain; I10 Essential (primary) hypertension; J45.909 Unspecified asthma, uncomplicated; K21.9 Gastro-esophageal reflux disease without esophagitis; Z90.49 Acquired absence of other specified parts of digestive tract; Z98.51 Tubal ligation status; Z88.6 Allergy status to analgesic agent; Z88.8 Allergy status to other drugs, medicaments and biological substances
CPT/HCPCS: 73564; 99284

== ENCOUNTER 2016-12-03 19:37 | Emergency (ER) | payer OTHER ==
[~2016-12-03] VITALS: Ht 170.2 cm; Wt 81.6 kg
[2016-12-03 19:51] VITALS: BP 157/77
[2016-12-03] MEDS ORDERED: CYCLOBENZAPRINE 10 MG TABLET. PO ONE (20:15)
[2016-12-03] MEDS ORDERED: CYCL10TA2 PO (20:21)
[2016-12-03] MEDS ORDERED: METO50TA2 PO (20:21)
[2016-12-03] MEDS ORDERED: FLUT1DIS IH (20:21)
[2016-12-03] MEDS ORDERED: MELO15TA23 PO (20:21)
--- NOTE | 2016-12-03 20:21 | PHYS DOC ---
Past Medical History Past Medical History: Asthma, GERD, Hypertension, Other Additional Past Medical Histor: CYST IN RIGHT BREAST, IRREGULAR HEART BEAT Past Surgical History: Cholecystectomy, Tubal ligation, Other Additional Past Surgical Histo: R)breast tumor removed. Alcohol Use: Occasionally Drug Use: None Adult General Chief Complaint Chief Complaint: BREAST PAIN/INJURY HPI HPI Patient is a 51 year old female with history of hypertension, asthma and hypertension who presents complaining of increased right breast pain. Patient states she had a tumor removed from her right breast in June 2016. She states she's had intermittent pain since then but it got worse a couple days ago when she ran out of her medications including meloxicam and cyclobenzaprine. She is also out of her blood pressure medicines including metoprolol as well as Advair for her asthma. She states she is having a hard time getting a hold of her PCP. Patient denies any drainage from the breast. Review of Systems Review of Systems Constitutional: Denies fever or chills [] Eyes: Denies change in visual acuity, redness, or eye pain [] HENT: Denies nasal congestion or sore throat [] Respiratory: Denies cough or shortness of breath [] Cardiovascular: No additional information not addressed in HPI [] GI: Denies abdominal pain, nausea, vomiting, bloody stools or diarrhea [] : Denies dysuria or hematuria [] Musculoskeletal: Denies back pain or joint pain [] Integument: Right breast pain Neurologic: Denies headache, focal weakness or sensory changes [] Endocrine: Denies polyuria or polydipsia [] Current Medications Current Medications Current Medications Medications (Trade) Dose Ordered Sig/Scott Start Time Stop Time Status Last Admin Dose Admin Cyclobenzaprine HCl (Flexeril) 10 mg 1X ONCE 12/03/16 20:15 12/03/16 20:16 UNV Allergies Allergies Allergies Coded Allergies Type Severity Reaction Last Updated Verified meclizine Allergy Intermediate Itching 07/24/16 Yes prednisone Allergy Intermediate Itching 07/24/16 Yes tramadol Allergy Intermediate 07/24/16 Yes Physical Exam Physical Exam Constitutional: Well developed, well nourished, no acute distress, non-toxic appearance. [] HENT: Normocephalic, atraumatic, bilateral external ears normal, oropharynx moist, no oral exudates, nose normal. [] Eyes: PERRLA, EOMI, conjunctiva normal, no discharge. [] Neck: Normal range of motion, no tenderness, supple, no stridor. [] Cardiovascular:Heart rate regular rhythm, no murmur [] Lungs & Thorax: Bilateral breath sounds clear to auscultation [] Abdomen: Bowel sounds normal, soft, no tenderness, no masses, no pulsatile masses. [] Skin: Right breast with no obvious dimpling, no redness. No tenderness on palpation of the right breast. No drainage from the right breast. Back: No tenderness, no CVA tenderness. [] Extremities: No tenderness, no cyanosis, no clubbing, ROM intact, no edema. [] Neurologic: Alert and oriented X 3, normal motor function, normal sensory function, no focal deficits noted. [] Psychologic: Affect normal, judgement normal, mood normal. [] EKG EKG [] Radiology/Procedures Radiology/Procedures [] Course & Med Decision Making Course & Med Decision Making Pertinent Labs and Imaging studies reviewed. (See chart for details) Patient is in the ED complaining of right breast pain that began in June after she had a tumor removed from her breast. She is out of her medications including cyclobenzaprine and meloxicam. She is also out of her blood pressure medicine metoprolol as well as asthma medicine and Advair. Prescriptions were given to her. She is to follow-up with her own doctor. Katja Disclaimer Katja Disclaimer This electronic medical record was generated, in whole or in part, using a voice recognition dictation system. Departure Departure Impression: Primary Impression: Breast pain, right Additional Impression: Medication refill Disposition: 01 HOME, SELF-CARE Condition: STABLE Referrals: NO PCP (PCP) Follow-up with your primary care doctor as well as your breast surgeon as soon as possible Patient Instructions: Breast Biopsy, [id number] Additional Instructions: You were seen for right breast pain as well as medication refills. Try and contact your primary care doctor as well as a breast surgeon as soon as possible and follow-up. Do not drive or operate machinery on cyclobenzaprine. Scripts Cyclobenzaprine Hcl (CYCLOBENZAPRINE HCL) 10 Mg Tablet 1 TAB PO TID, #60 TAB Prov: MUTUNGACHRISTINE I&C TECH 12/03/16 Meloxicam (MELOXICAM) 15 Mg Tablet 1 TAB PO DAILY, #30 TAB 0 Refills Prov: MUTUNGA,CHRISTINE I&C TECH 12/03/16 Fluticasone/Salmeterol (ADVAIR 100-50 DISKUS) 1 Each Disk.w.dev 1 PUFF IH BID, #1 INHALER 1 Refill Prov: CHRISTINE KUMAR APRN 12/03/16 Metoprolol Tartrate (METOPROLOL TARTRATE) 50 Mg Tablet 1 TAB PO BID, #60 TAB 0 Refills Prov: CHRISTINE KUMAR APRN 12/03/16 Problem Qualifiers CHRISTINE KUMAR APRN Dec 03, 2016 20:21
== END 2016-12-03 20:33 | disposition home or self-care (01) ==
LOC: ER 19:37
DX: N64.4 Mastodynia (principal); Z76.0 Encounter for issue of repeat prescription; K21.9 Gastro-esophageal reflux disease without esophagitis; J45.909 Unspecified asthma, uncomplicated; I10 Essential (primary) hypertension; Z90.49 Acquired absence of other specified parts of digestive tract; Z98.51 Tubal ligation status; Z88.5 Allergy status to narcotic agent; Z88.8 Allergy status to other drugs, medicaments and biological substances; Z98.890 Other specified postprocedural states
CPT/HCPCS: 99283

== ENCOUNTER 2017-01-07 21:04 | Emergency (ER) | payer OTHER ==
[~2017-01-07] VITALS: Ht 170.2 cm; Wt 72.6 kg
[~2017-01-07 21:04] MED LIST changes: +METO50TA2 PO
[2017-01-07 21:20] VITALS: BP 161/89
[2017-01-07] MEDS ORDERED: CYCLOBENZAPRINE 10 MG TABLET. PO ONE (22:00)
[2017-01-07] MEDS ORDERED: CYCL10TA2 PO (22:28)
--- NOTE | 2017-01-07 22:29 | PHYS DOC ---
Past Medical History Past Medical History: Asthma, GERD, Hypertension, Seizure, Other Additional Past Medical Histor: CYST IN RIGHT BREAST, IRREGULAR HEART BEAT Past Surgical History: Cholecystectomy, Tubal ligation, Other Additional Past Surgical Histo: R)breast tumor removed. Alcohol Use: Occasionally Drug Use: None Adult General Chief Complaint Chief Complaint: ELBOW PROBLEM HPI HPI Patient is a 51 year old female with hx of HTN, Asthma who presents with left elbow pain, that begun a few minutes prior to coming to the Ed. patient states she stretched her left elbow and heard a pop sound from it. Review of Systems Review of Systems Constitutional: Denies fever or chills [] Musculoskeletal: Left elbow pain Integument: Denies rash or skin lesions [] Neurologic: Denies headache, focal weakness or sensory changes [] Current Medications Current Medications Current Medications Medications (Trade) Dose Ordered Sig/Scott Start Time Stop Time Status Last Admin Dose Admin Cyclobenzaprine HCl (Flexeril) 10 mg 1X ONCE 01/07/17 22:00 01/07/17 22:01 DC 01/07/17 21:48 10 MG Allergies Allergies Allergies Coded Allergies Type Severity Reaction Last Updated Verified meclizine Allergy Intermediate Itching 07/24/16 Yes prednisone Allergy Intermediate Itching 07/24/16 Yes tramadol Allergy Intermediate 07/24/16 Yes Physical Exam Physical Exam Constitutional: Well developed, well nourished, no acute distress, non-toxic appearance. [] Skin: Warm, dry, no erythema, no rash. [] Back: No tenderness, no CVA tenderness. [] Extremities: Left elbow with no obvious deformity. No tenderness on palpation of the left elbow. Full passive range of motion to the left elbow. +2 left radial pulse. Adequate radial medial and ulnar sensation to the left upper extremity. Cap refill less than 2 seconds the left fingers. Neurologic: Alert and oriented X 3, normal motor function, normal sensory function, no focal deficits noted. [] Psychologic: Affect normal, judgement normal, mood normal. [] Current Patient Data Vital Signs Vital Signs Date Time Temp Pulse Resp B/P (MAP) Pulse Ox O2 Delivery O2 Flow Rate FiO2 01/07/17 21:20 97.8 92 20 96 Room Air 97.8 EKG EKG [] Radiology/Procedures Radiology/Procedures [] Course & Med Decision Making Course & Med Decision Making Pertinent Labs and Imaging studies reviewed. (See chart for details) Patient is in the ED with left elbow pain that began today after she stretched her left elbow. Left elbow x-rays interpreted by Dr. Baptiste were negative for any acute findings. She likely sprained her elbow. Karson wrap applied to the left elbow by the radioactivity technician, neurovascular exam is intact. Ice elevation encouraged. Naproxen and cyclobenzaprine for pain. Follow-up with PCP or orthopedic doctor in a week. Dragon Disclaimer Dragon Disclaimer This electronic medical record was generated, in whole or in part, using a voice recognition dictation system. Departure Departure Impression: Primary Impression: Sprain of left elbow Disposition: HOME, SELF-CARE Condition: STABLE Referrals: NO PCP (PCP) MICHAEL WILKINS II, MD Follow up in one week if pain continues Patient Instructions: Joint Sprain Additional Instructions: You were seen for left elbow sprain. Ice and elevate the extremity. Take the prescribed medicines as needed for pain including naproxen. Follow-up with your doctor or the provided orthopedic doctor in one week. Wear the Karson wrap as tolerated. Scripts Cyclobenzaprine Hcl (CYCLOBENZAPRINE HCL) 10 Mg Tablet 1 TAB PO TID, #30 TAB Prov: CHRISTINE KUMAR APRN 01/07/17 Problem Qualifiers Primary Impression: Sprain of left elbow Encounter type: initial encounter Qualified Codes: S53.402A - Unspecified sprain of left elbow, initial encounter CHRISTINE KUMAR APRN Jan 07, 2017 22:29
--- NOTE | 2017-01-08 07:39 | RAD ---
Indication injury, pain. AP oblique and lateral views of the left elbow were obtained. No bony abnormality is seen
== END 2017-01-07 22:40 | disposition home or self-care (01) ==
LOC: ER 21:04
DX: S53.402A Unspecified sprain of left elbow, initial encounter (principal); J45.909 Unspecified asthma, uncomplicated; I10 Essential (primary) hypertension; K21.9 Gastro-esophageal reflux disease without esophagitis; Z90.49 Acquired absence of other specified parts of digestive tract; Z98.51 Tubal ligation status; Z88.5 Allergy status to narcotic agent; Z88.8 Allergy status to other drugs, medicaments and biological substances; X50.9XXA Other and unspecified overexertion or strenuous movements or postures, initial encounter; Y93.89 Activity, other specified; Y99.8 Other external cause status; Y92.89 Other specified places as the place of occurrence of the external cause
CPT/HCPCS: 73080; 99284

== ENCOUNTER → 2017-05-11 | Outpatient (CLI) | payer OTHER | END | disposition home or self-care (01) | LOC: MAMMO 11:10 | DX: Z12.31 Encounter for screening mammogram for malignant neoplasm of breast (principal) | CPT/HCPCS: 77067 ==

== ENCOUNTER 2017-06-10 14:34 | Emergency (ER) | payer OTHER | END 2017-06-10 16:33 | disposition home or self-care (01) | LOC: ER 14:34 | DX: R09.1 Pleurisy (principal); J45.909 Unspecified asthma, uncomplicated; K21.9 Gastro-esophageal reflux disease without esophagitis; I10 Essential (primary) hypertension; Z90.49 Acquired absence of other specified parts of digestive tract; Z98.51 Tubal ligation status; Z88.8 Allergy status to other drugs, medicaments and biological substances; Z88.5 Allergy status to narcotic agent | CPT/HCPCS: 71046; 99284-25 ==

== ENCOUNTER 2017-11-04 05:23 | Emergency (ER) | payer OTHER ==
[2017-11-04] MEDS: IV NORMAL SALINE 500ML BAG 500 ML IV (06:30)
[2017-11-04] MEDS: ONDANSETRON PF 4 MG/2 ML VIAL. IV (06:30)
[2017-11-04 06:34] LABS: ADD MAN DIFF? NO
[2017-11-04 06:36] LABS: BILIRUBIN,URINE NEGATIVE (NEG); CLARITY,URINE CLEAR; COLOR,URINE YELLOW; GLUCOSE,URINE NEGATIVE (NEG); NITRITE,URINE NEGATIVE (NEG); PROTEIN,URINE NEGATIVE (NEG-TRACE); UROBILINOGEN,URINE 0.2 mg/dL (0.2 mg/dL)
[2017-11-04 06:42] LABS: BARBITURATES NEG (NEG); BENZODIAZEPINES NEG (NEG); CANNABINOIDS NEG (NEG); COCAINE NEG (NEG); METHADONE NEG (NEG); OPIATES NEG (NEG); PHENCYCLIDINE NEG (NEG)
[2017-11-04 06:46] LABS: AMPHETAMINE/METHAMPHETAMINE NEG (NEG); ETHANOL, URINE NEG (NEG)
[2017-11-04 06:51] LABS: ANION GAP 8 (6-14); BLOOD UREA NITROGEN 17 mg/dL (7-20); BUN/CREATININE RATIO 14 (6-20); CALCIUM 8.6 mg/dL (8.5-10.1); CARBON DIOXIDE 28 mmol/L (21-32); CHLORIDE 102 mmol/L (98-107); CREATININE 1.2 mg/dL (0.6-1.0); GFR 46.8; GLUCOSE 178 mg/dL (70-99); SODIUM 138 mmol/L (136-145)
[2017-11-04 06:58] LABS: ALBUMIN 3.7 g/dL (3.4-5.0); ALBUMIN/GLOBULIN RATIO 1.1 (1.0-1.7); ALK PHOS 88 U/L (46-116); ALT (SGPT) 25 U/L (14-59); AST (SGOT) 19 U/L (15-37); LIPASE 73 U/L (73-393); TOTAL BILIRUBIN 0.6 mg/dL (0.2-1.0)
[2017-11-04 07:02] LABS: BACTERIA,URINE 0 /HPF (0-FEW); RBC,URINE 0 /HPF (0-2); SQUAMOUS EPITHELIAL CELL,UR FEW /LPF; WBC,URINE OCC /HPF (0-4)
[2017-11-04 07:05] LABS: TROPONINI < 0.017 ng/mL (0.000-0.055)
[2017-11-04 07:09] LABS: BASO # 0.1 x10^3/uL (0.0-0.2); BASO % 1 % (0-3); EOS # 0.3 x10^3/uL (0.0-0.7); EOS % 3 % (0-3); HEMATOCRIT 38.8 % (36.0-47.0); HEMOGLOBIN 13.7 g/dL (12.0-15.5); LYMPH # 2.3 x10^3/uL (1.0-4.8); LYMPH % 24 % (24-48); MEAN CORPUSCULAR HEMOGLOBIN 30 pg (25-35); MEAN CORPUSCULAR HGB CONC 35 g/dL (31-37); MEAN CORPUSCULAR VOLUME 85 fL (79-100); MONO # 0.7 x10^3/uL (0.0-1.1); MONO % 7 % (0-9); NEUT # 6.2 x10^3uL (1.8-7.7); NEUT % 65 % (31-73); PLATELET COUNT 314 x10^3/uL (140-400); RED BLOOD COUNT 4.58 x10^6/uL (3.50-5.40); WHITE BLOOD COUNT 9.6 x10^3/uL (4.0-11.0)
[2017-11-04] MEDS: FAMOTIDINE 20 MG/2 ML VIAL IVP (08:24)
== END 2017-11-04 08:35 | disposition home or self-care (01) ==
LOC: ER 05:23
DX: K21.9 Gastro-esophageal reflux disease without esophagitis (principal); E86.0 Dehydration; R00.0 Tachycardia, unspecified; J45.909 Unspecified asthma, uncomplicated; E78.00 Pure hypercholesterolemia, unspecified; I10 Essential (primary) hypertension; Z90.49 Acquired absence of other specified parts of digestive tract; Z98.51 Tubal ligation status; Z88.5 Allergy status to narcotic agent; Z88.8 Allergy status to other drugs, medicaments and biological substances
CPT/HCPCS: 36415; 80053; 80307; 81001; 83690; 84484; 85025; 93005; 96361; 96374; 96375; 99285-25; J2405; J7040; S0028

== ENCOUNTER → 2018-06-22 | Outpatient (CLI) | payer OTHER ==
[2017-11-04 08:30] VITALS: BP 133/63
[~2018-06-22] MED LIST changes: +ALBU2.5V8 INH; -FERR-26 PO; +FERR325T14 PO; +HYDR-3164 PO; -HYDR-971 PO; -METO50TA2 PO; +METO50TA6 PO; -PROAIR HFA8.5 GM INH; +RANI-376 PO
--- NOTE | 2018-06-22 10:24 | RAD ---
DATE: June 22, 2018 EXAM: DIGITAL SCREEN BILAT W/CAD HISTORY: History of benign retroareolar excisional right breast biopsy. COMPARISON: 2015 and 2007 2-D digital mammography of both breasts was performed in the CC and MLO projections. This study was interpreted with the benefit of Computerized Aided Detection (CAD). FINDINGS: Breast Density: HETERO The breast parenchyma is heterogenously dense, which could reduce sensitivity of mammography. Breast parenchyma level C.. There are no dominant suspicious masses, suspicious microcalcifications or evidence of architectural distortion. IMPRESSION: No mammographic indicators for malignancy. BI-RADS CATEGORY: 1 NEGATIVE RECOMMENDED FOLLOW-UP: 12M 12 MONTH FOLLOW-UP PQRS compliance statement: Patient information was entered into a reminder system with a target due date June 23, 2019 for the next mammogram. Mammography is a sensitive method for finding small breast cancers, but it does not detect them all and is not a substitute for careful clinical examination. A negative mammogram does not negate a clinically suspicious finding and should not result in delay in biopsying a clinically suspicious abnormality. "Our facility is accredited by the [employer] Mammography [employer]." The patient's breast density may affect the ability of mammography to detect breast cancer. There are 4 categories of breast density, A, B, C and D. Breast density A means that most of the breast tissue is replaced with adipose tissue and therefore is not dense. Breast density B means that the breast tissue is mildly dense and scattered. Breast density C means that the breast tissue is heterogeneously dense. Breast density D means that the breast tissue is very dense. Breast densities especially C and D may decrease the sensitivity of mammography to detect breast cancer. Therefore, the patient may benefit from 3-D breast mammography (3D breast tomography) as a part of their screening mammogram. Insurance may or may not pay for this additional imaging. The patient's breast density based on today's mammogram is category C.
== END | disposition home or self-care (01) ==
LOC: MAMMO 08:08
PROVIDERS: ATTEND Family Medicine
DX: Z12.31 Encounter for screening mammogram for malignant neoplasm of breast (principal)
CPT/HCPCS: 77067

== ENCOUNTER → 2019-07-02 | Outpatient (CLI) | payer MEDICAID ==
[2017-11-04 08:30] VITALS: BP 133/63
[~2019-07-02] MED LIST changes: +OMEP40CA45 PO; -OMEP40CA5 PO
--- NOTE | 2019-07-04 18:38 | RAD ---
BILATERAL SCREENING MAMMOGRAM History: Routine screening. Comparison: 03/29/2016, 09/25/2015, 06/22/2018, 05/11/2017 mammographic exams. Technique: Routine bilateral digital mammogram views were obtained. Findings: Breast Tissue Density B : There are scattered areas of fibroglandular density. There are no dominant masses, suspicious microcalcifications, or architectural distortion. IMPRESSION: No mammographic evidence of malignancy. Recommend routine screening. BI-RADS category 1: Negative. The images were reviewed with computer aided detection. Patient information is entered into the reminder system with a target due date for the next screening mammogram. Mammography is the most sensitive method for finding small breast cancers, but it does not detect them all and is not a substitute for careful clinical examination. A negative mammogram does not negate a clinically suspicious finding and should not result in delay in biopsying a clinically suspicious abnormality. "Our facility is accredited by the [employer] Mammography [employer]." Electronically signed by: Garret Rojo MD (07/04/2019 6:35 PM) [id number]
== END | disposition home or self-care (01) ==
LOC: MAMMO 09:06
PROVIDERS: ATTEND Family Medicine
DX: Z12.31 Encounter for screening mammogram for malignant neoplasm of breast (principal)
CPT/HCPCS: 77067

== ENCOUNTER → 2021-02-18 | Outpatient (CLI) | payer MEDICAID ==
[2017-11-04 08:30] VITALS: BP 133/63
[~2021-02-18] MED LIST changes: +CYCL10TA19 PO; -CYCL10TA2 PO; -OMEP40CA45 PO; +OMEP40CA7 PO
--- NOTE | 2021-02-19 11:20 | RAD ---
Bilateral digital screening mammogram 02/18/2021 CLINICAL HISTORY: Screening study. Digital MLO and CC mammograms of both breasts were obtained. Comparison study is dated 07/02/2019, 06/22 and 05/11/2017. The breast parenchyma is composed of scattered fibroglandular densities which could obscure a lesion on mammography (breast density B). Benign-appearing calcifications are seen within both breasts. No s piculated mass is seen. No malignant appearing calcification or area of architectural distortion is n oted. Impression: BI-RADS Category 1: Negative. There is no mammographic evidence of malignancy. Routine y early screening mammography is recommended for follow-up. This examination was reviewed with the aid of computer-aided detection. A mammogram does not have 100% sensitivity and therefore a negative imaging study should not delay fu rther work up of a suspicious abnormality. Patient information is entered into the reminder system with a target due date for the next screening mammogram of 02/18/2021. "Our facility is accredited by the [employer] Mammography Program." Electronically signed by: Robby Rivera MD (02/19/2021 11:18 AM) [email or web address]
== END ==
LOC: MAMMO 15:08
PROVIDERS: ATTEND Family Medicine
DX: Z12.31 Encounter for screening mammogram for malignant neoplasm of breast (principal)
CPT/HCPCS: 77067

== ENCOUNTER 2021-05-31 13:53 | Emergency (ER) | payer MEDICAID ==
[~2021-05-31] VITALS: Ht 170.2 cm; Wt 90.9 kg
[2021-05-31 14:00] VITALS: BP 147/81
--- NOTE | 2021-05-31 15:26 | RAD ---
Right ankle 3 views, bilateral knees 3 views each. HISTORY: Injury Right knee 3 views were taken of the right knee. There is osteoarthritis with joint space narrowing medially and hypertrophic spurring. There is also mild spurring on the patella. There is no joint effusion in the right knee. There is no acute fracture in the right knee. Left knee 3 views were taken of the left knee. There is osteoarthritis of the left knee with joint space narrow ing medially and hypertrophic spurring. There is mild spurring on the patella. There is no joint effu sharmin in the left knee. There is no acute fracture in the left knee. Right ankle 3 views were taken of the right ankle. There is not evidence of an acute fracture or osseous abnormal ity. There is spurring on the patella. IMPRESSION: 1. No acute fracture right ankle. 2. Osteoarthritis in both knees. 3. No fracture noted in either knee. Electronically signed by: Darrel Edge MD (05/31/2021 3:24 PM) [id number]
[2021-05-31] MEDS ORDERED: HYDROcodone/APAP 5/325MG 1 TAB TABLET PO ONE (16:15)
--- NOTE | 2021-05-31 16:18 | PHYS DOC ---
Past Medical History Past Medical History: Asthma, GERD, High Cholesterol, Hypertension, Seizure, Other Additional Past Medical Histor: CYST IN RIGHT BREAST, IRREGULAR HEART BEAT Past Surgical History: Cholecystectomy, Tubal ligation, Other Additional Past Surgical Histo: R)breast tumor removed. Smoking Status: Never Smoker Alcohol Use: Occasionally Drug Use: None General Adult EDM: Chief Complaint: KNEE INJURY HPI: HPI: Patient is a 56 year old female who presents after slipping on the snow while she was getting out of her car. Patient is complaining of right knee and right ankle pain. Patient reports she landed on her knees when she fell. Denies taking any thing at home for pain. History of asthma, hypertension, hypothyroid, seizures. Review of Systems: Review of Systems: ROS At least 10 ROS systems have been reviewed and are negative except as documented in the HPI. General: Negative except as outlined in HPI above. Skin: Negative except as outlined in HPI above. HEENT: Negative except as outlined in HPI above. Neck: Negative except as outlined in HPI above. Respiratory: Negative except as outlined in HPI above.. Cardiovascular: Negative except as outlined in HPI above. Abdomen: Negative except as outlined in HPI above. : Negative except as outlined in HPI above. Back/MSK: Negative except as outlined in HPI above. Neuro: Negative except as outlined in HPI above. Psych: Negative except as outlined in HPI above. Heart Score: C/O Chest Pain: No Risk Factors: Risk Factors: DM, Current or recent (<one month) smoker, HTN, HLP, family history of CAD, obesity. Risk Scores: Score 0 - 3: 2.5% MACE over next 6 weeks - Discharge Home Score 4 - 6: 20.3% MACE over next 6 weeks - Admit for Clinical Observation Score 7 - 10: 72.7% MACE over next 6 weeks - Early Invasive Strategies Allergies: Allergies: Allergies Coded Allergies Type Severity Reaction Last Updated Verified meclizine Allergy Intermediate Itching 07/24/16 Yes prednisone Allergy Intermediate Itching 07/24/16 Yes tramadol Allergy Intermediate 07/24/16 Yes Physical Exam: PE: Constitutional: Well developed, well nourished, no acute distress, non-toxic appearance. [] HENT: bilateral external ears normal, oropharynx moist, no oral exudates, nose normal. [] Eyes: PERRLA, EOMI, conjunctiva normal, no discharge. [] Neck: Normal range of motion, no tenderness, supple, no stridor. [] Cardiovascular:Heart rate regular rhythm, no murmur [] Lungs & Thorax: Bilateral breath sounds clear to auscultation [] Abdomen: Bowel sounds normal, soft, no tenderness, no masses, no pulsatile masses. [] Skin: Warm, dry, no erythema, no rash. [] Back: No tenderness, no CVA tenderness. [] Extremities: Left knee and ankle tenderness,ROM intact, no edema, unable to bear weight, pedal pulses intact Neurologic: Alert and oriented X 3, normal motor function, normal sensory function, Psychologic: Affect normal, judgement normal, mood normal. [] Current Patient Data: Vital Signs: Vital Signs Date Time Temp Pulse Resp B/P (MAP) Pulse Ox O2 Delivery O2 Flow Rate FiO2 05/31/21 14:00 98.0 88 22 147/81 (103) 99 Room Air 98.0 EKG: EKG: [] Radiology/Procedures: Radiology/Procedures: []Right ankle 3 views, bilateral knees 3 views each. HISTORY: Injury Right knee 3 views were taken of the right knee. There is osteoarthritis with joint space narrowing medially and hypertrophic spurring. There is also mild spurring on the patella. There is no joint effusion in the right knee. There is no acute fracture in the right knee. Left knee 3 views were taken of the left knee. There is osteoarthritis of the left knee with joint space narrowing medially and hypertrophic spurring. There is mild spurring on the patella. There is no joint effusion in the left knee. There is no acute fracture in the left knee. Right ankle 3 views were taken of the right ankle. There is not evidence of an acute fracture or osseous abnormality. There is spurring on the patella. IMPRESSION: 1. No acute fracture right ankle. 2. Osteoarthritis in both knees. 3. No fracture noted in either knee. Electronically signed by: Darrel Edge MD (05/31/2021 3:24 PM) [id number] Course & Med Decision Making: Course & Med Decision Making Pertinent Labs and Imaging studies reviewed. (See chart for details) [] 56-year-old female presents after falling on the snow and landing on her knees. Patient was reporting pain to her right knee and left ankle. Work-up in ER consisted of left knee and left ankle x-ray. X-ray is unremarkable. Discussed results with patient. Patient's pain treated in the ER. Educated patient on RICE instructions. Advised patient if that pain does not improve to follow-up with her PCP in 5 to 7 days for possible repeat imaging. Ibuprofen and Tylenol for discomfort. Patient verbalizes understanding of discharge instructions. Oseason Disclaimer: Dragon Disclaimer: This electronic medical record was generated, in whole or in part, using a voice recognition dictation system. Departure Departure Impression: Primary Impression: Right knee pain Qualified Codes: M25.561 - Pain in right knee Additional Impression: Fall Qualified Codes: W19.XXXA - Unspecified fall, initial encounter Disposition: HOME / SELF CARE / HOMELESS Condition: STABLE Referrals: MADIE CHATTERJEE JR, MD (PCP) Patient Instructions: Fall Prevention and Home Safety Additional Instructions: You were seen in the emergency room after a fall. Knee and ankle x-ray were both negative for fracture. If your pain does not resolve please follow-up with your PCP for possible repeat imaging. Rest, use ice to the area, elevate. Ibuprofen and Tylenol for discomfort. Return to the emergency room for worsening symptoms or concerns. EMERGENCY DEPARTMENT GENERAL DISCHARGE INSTRUCTIONS Thank you for coming to [facility] Emergency Department (ED) today and trusting us with you care. We trust that you had a positive experience in our Emergency Department. If you wish to speak to the department management, you may call the Director at [phone]. YOUR FOLLOW UP INSTRUCTIONS ARE FOLLOWS: 1. Do you have a private Doctor? If you do not have a private doctor, please ask for a resource list of physicians or clinics that may be able to assist you with follow up care. 2. The Emergency Physicain has interpreted your x-rays. The X-Ray specialist will also review them. If there is a change in the findings, you will be notified in 48 hours when at all possible. 3. A lab test or culture has been done, your results will be reviewed and you will be notified if you need a change in treatment. ADDITIONAL INSTRUCTIONS AND INFORMATION: 1. Your care today has been supervised by a physician who is specially trained in emergency care. Many problems require more than one evaluation for a complete diagnosis and treatment. We recommend that you schedule your follow up appointment as recommended to ensure complete treatment of you illness or injury. If you are unable to obtain follow up care and continue to have a problem, or if your condition worsens, we recommend that you return to the ED. 2. We are not able to safely determine your condition over the phone nor are we able to give sound medical advice over the phone. For these safety reasons, if you call for medical advice we will ask you to come to the ED for further evaluation. 3. If you have any questions regarding these discharge instructions please call the ED at [phone]. SAFETY INFORMATION: In the interest of safety, wellness, and injury prevention; we encourage you to wear your sealbelt, if you smoke; quite smoking, and we encourage family to use a protective helmet for bicycling and other sporting events that present an increased risk for head injury. IF YOUR SYMPTOMS WORSEN OR NEW SYMPTOMS DEVELOP, OR YOU HAVE CONCERNS ABOUT YOUR CONDITION; OR IF YOUR CONDITION WORSENS WHILE YOU ARE WAITING FOR YOUR FOLLOW UP APPOINTMENT; EITHER CONTACT YOUR PRIMARY CARE DOCTOR, THE PHYSICIAN WHOSE NAME AND NUMBER YOU WERE GIVEN, OR RETURN TO THE ED IMMEDIATELY. CARL BALDERAS APRN May 31, 2021 16:18
== END 2021-05-31 16:45 | disposition home or self-care (01) ==
LOC: ER 13:53
DX: M25.561 Pain in right knee (principal); M25.571 Pain in right ankle and joints of right foot; J45.909 Unspecified asthma, uncomplicated; K21.9 Gastro-esophageal reflux disease without esophagitis; E78.00 Pure hypercholesterolemia, unspecified; I10 Essential (primary) hypertension; Z90.49 Acquired absence of other specified parts of digestive tract; Z98.51 Tubal ligation status; W00.0XXA Fall on same level due to ice and snow, initial encounter; Y93.89 Activity, other specified; Y92.89 Other specified places as the place of occurrence of the external cause; Y99.8 Other external cause status
CPT/HCPCS: 73610; 99284; 73562-50

== ENCOUNTER 2021-08-06 14:38 | Inpatient (IN) | payer MEDICAID ==
[~2021-08-06] VITALS: Ht 170.2 cm; Wt 88.4 kg
[2021-08-06] MEDS ORDERED: IV NORMAL SALINE 1000ML BAG 1,000 ML IV ONE ×2 (15:30→17:30)
[2021-08-06 15:46] LABS: FECAL OB PT POSITIVE (NEG)
--- NOTE | 2021-08-06 15:46 | PHYS DOC ---
Past Medical History Past Medical History: Asthma, GERD, High Cholesterol, Hypertension, Seizure, Other Additional Past Medical Histor: CYST IN RIGHT BREAST, IRREGULAR HEART BEAT Past Surgical History: Cholecystectomy, Tubal ligation, Other Additional Past Surgical Histo: R)breast tumor removed. Smoking Status: Never Smoker Alcohol Use: Occasionally Drug Use: None General Adult EDM: Chief Complaint: DIZZY/LIGHT HEADED HPI: HPI: Patient is a 56-year-old female that presents today with dizziness and diarrhea since about 230 today. Patient states that last evening her and some friends got together and they had chicken that was barbecued, she said since that time all of them of been having stomach issues, she said that today she has had multiple bouts of diarrhea and that she has been feeling dizzy. Patient was found in the lobby bathroom by the nursing staff with incontinence of bowel due to diarrhea. Patient states she feels dizzy and her boyfriend is also experiencing same symptoms. Patient states she has a past Review of Systems: Review of Systems: Constitutional: Denies fever or chills. [] Eyes: Denies change in visual acuity. [] HENT: Denies nasal congestion or sore throat. [] Respiratory: Denies cough or shortness of breath. [] Cardiovascular: Denies chest pain or edema. [] GI: Denies abdominal pain, diarrhea. [] : Denies dysuria. [] Musculoskeletal: Denies back pain or joint pain. [] Integument: Denies rash. [] Neurologic: Denies headache, focal weakness or sensory changes. [] Endocrine: Denies polyuria or polydipsia. [] Lymphatic: Denies swollen glands. [] Psychiatric: Denies depression or anxiety. [] Heart Score: C/O Chest Pain: No Risk Factors: Risk Factors: DM, Current or recent (<one month) smoker, HTN, HLP, family history of CAD, obesity. Risk Scores: Score 0 - 3: 2.5% MACE over next 6 weeks - Discharge Home Score 4 - 6: 20.3% MACE over next 6 weeks - Admit for Clinical Observation Score 7 - 10: 72.7% MACE over next 6 weeks - Early Invasive Strategies Current Medications: Current Medications Medications (Trade) Dose Ordered Sig/Scott Start Time Stop Time Status Last Admin Dose Admin Sodium Chloride 1,000 ml @ 999 mls/hr 1X ONCE 08/06/21 15:30 4/12/22 16:30 Allergies: Allergies: Allergies Coded Allergies Type Severity Reaction Last Updated Verified meclizine Allergy Intermediate Itching 07/24/16 Yes prednisone Allergy Intermediate Itching 07/24/16 Yes tramadol Allergy Intermediate 07/24/16 Yes Physical Exam: PE: Constitutional: Well developed, well nourished, no acute distress, non-toxic appearance. [] HENT: Normocephalic, atraumatic, bilateral external ears normal, oropharynx moist, no oral exudates, nose normal. [] Eyes: PERRLA, EOMI, conjunctiva normal, no discharge. [] Neck: Normal range of motion, no tenderness, supple, no stridor. [] Cardiovascular:Heart rate regular rhythm, no murmur [] Lungs & Thorax: Bilateral breath sounds clear to auscultation [] Abdomen: Bowel sounds normal, soft, no tenderness, no masses, no pulsatile masses. [] Skin: Warm, dry, no erythema, no rash. [] Back: No tenderness, no CVA tenderness. [] Extremities: No tenderness, no cyanosis, no clubbing, ROM intact, no edema. [] Neurologic: Alert and oriented X 3, normal motor function, normal sensory function, no focal deficits noted. [] Psychologic: Affect normal, judgement normal, mood normal. [] Current Patient Data: Labs: Laboratory Tests Test 08/06/21 15:30 08/06/21 16:30 08/06/21 18:07 Stool Occult Blood Positive White Blood Count 29.1 x10^3/uL Red Blood Count 5.37 x10^6/uL Hemoglobin 16.2 g/dL Hematocrit 47.0 % Mean Corpuscular Volume 88 fL Mean Corpuscular Hemoglobin 30 pg Mean Corpuscular Hemoglobin Concent 34 g/dL Red Cell Distribution Width 13.2 % Platelet Count 415 x10^3/uL Neutrophils (%) (Auto) 89 % Lymphocytes (%) (Auto) 4 % Monocytes (%) (Auto) 7 % Eosinophils (%) (Auto) 0 % Basophils (%) (Auto) 0 % Neutrophils # (Auto) 25.8 x10^3/uL Lymphocytes # (Auto) 1.2 x10^3/uL Monocytes # (Auto) 2.0 x10^3/uL Eosinophils # (Auto) 0.0 x10^3/uL Basophils # (Auto) 0.1 x10^3/uL Segmented Neutrophils % 86 % Band Neutrophils % 5 % Lymphocytes % 6 % Monocytes % 3 % Platelet Estimate Adequate Karthik Cells Present Sodium Level 139 mmol/L Potassium Level 3.7 mmol/L Chloride Level 100 mmol/L Carbon Dioxide Level 27 mmol/L Anion Gap 12 Blood Urea Nitrogen 27 mg/dL Creatinine 1.4 mg/dL Estimated GFR (Cockcroft-Gault) 38.6 BUN/Creatinine Ratio 19 Glucose Level 182 mg/dL Calcium Level 9.7 mg/dL Total Bilirubin 1.3 mg/dL Aspartate Amino Transf (AST/SGOT) 14 U/L Alanine Aminotransferase (ALT/SGPT) 25 U/L Alkaline Phosphatase 91 U/L Total Protein 7.6 g/dL Albumin 4.1 g/dL Albumin/Globulin Ratio 1.2 Lipase 30 U/L Urine Collection Type Unknown Urine Color (Auto) Dark yellow Urine Turbidity Clear Urine pH (Auto) 5.0 Urine Specific [place] 1.022 Urine Protein (Auto) Negative mg/dL Urine Glucose (Auto)(UA) Negative mg/dL Urine Ketones (Auto) Negative mg/dL Urine Blood (Auto) Negative Urine Nitrite Negative Urine Bilirubin (Auto) Negative Urine Urobilinogen (Auto) 2 mg/dL Urine Leukocyte Esterase (Auto) Negative Urine RBC 1-2 /HPF Urine WBC 1-4 /HPF Urine Squamous Epithelial Cells Mod /LPF Urine Bacteria Few /HPF Urine Hyaline Casts Few /HPF Urine Mucus Mod /LPF Current Medications Medications (Trade) Dose Ordered Sig/Scott Route PRN Reason Start Time Stop Time Status Last Admin Dose Admin Sodium Chloride 1,000 ml @ 999 mls/hr 1X ONCE IV 08/06/21 15:30 08/06/21 16:30 DC 08/06/21 16:30 Ondansetron HCl (Zofran) 4 mg 1X ONCE IVP 08/06/21 16:30 08/06/21 16:31 DC 08/06/21 16:33 Sodium Chloride 1,000 ml @ 999 mls/hr 1X ONCE IV 08/06/21 17:30 08/06/21 18:30 DC 08/06/21 17:59 Vital Signs: Vital Signs Date Time Temp Pulse Resp B/P (MAP) Pulse Ox O2 Delivery O2 Flow Rate FiO2 08/06/21 18:36 94 22 128/60 (82) 97 Room Air 08/06/21 18:07 116 22 130/62 (84) 98 Room Air 08/06/21 17:37 112 27 138/73 (94) 98 Room Air 08/06/21 16:59 100 20 129/64 (85) 97 Room Air 08/06/21 15:59 94 27 108/54 (72) Room Air 08/06/21 15:15 98.6 106 20 122/82 (95) 97 98.6 Vital Signs Date Time Temp Pulse Resp B/P (MAP) Pulse Ox O2 Delivery O2 Flow Rate FiO2 08/06/21 15:15 98.6 106 20 122/82 (95) 97 98.6 EKG: EKG: EKG done at [address] Lozano at 1540 shows sinus tachycardia with no ectopy at a rate of 103 with a NH interval of 156 ms with a QTC of 432 ms no STEMI [] Radiology/Procedures: Radiology/Procedures: REASON: abdominal pain and diarrhea PROCEDURE: CT ABDOMEN PELVIS WO CONTRAST CT abdomen pelvis without contrast. HISTORY: Abdominal pain and diarrhea CT abdomen pelvis was done without contrast. Lung bases are clear. There is no effusion. There are small hepatic cysts at the dome of the liver. Spleen is unremarkable. The patient's had a cholecystectomy. Adrenal glands are normal. Pancreas is unremarkable. There is no mass or hydronephrosis in the kidneys. A renal or ureteral calculus is not identified. There is no bowel obstruction. There is no ascites. Uterus and ovaries are unremarkable. There is not evidence of a diverticulitis. Appendix is normal. There is slight thickening the bowel wall the descending colon and sigmoid colon mild colitis or gastroenteritis could have this pattern. IMPRESSION: 1. No bowel obstruction. 3. No abdominal or pelvic mass noted. 3. Mild bowel wall thickening of the descending colon possible colitis or gastroenteritis. PQRS Compliance Statement: One or more of the following individualized dose reduction techniques were utilized for this examination: 1. Automated exposure control 2. Adjustment of the mA and/or kV according to patient size 3. Use of iterative reconstruction technique Electronically signed by: Darrel Edge MD (08/06/2021 5:48 PM) [facility] DICTATED and SIGNED BY: DARREL EDGE MD DATE: 08/06/21 174 [] Course & Med Decision Making: Course & Med Decision Making Pertinent Labs and Imaging studies reviewed. (See chart for details) 1855 reviewed radiological and laboratory results with patient due to the elevated white count and her symptoms I think admitting her overnight for IV antibiotics and hydration is appropriate, patient is agreeable with the plan of care of admitting, I did page Dr. Rowell for admission. Dragon Disclaimer: Dragon Disclaimer: This electronic medical record was generated, in whole or in part, using a voice recognition dictation system. Departure Departure Impression: Primary Impression: Diarrhea Qualified Codes: R19.7 - Diarrhea, unspecified Additional Impression: Leukocytosis Qualified Codes: D72.829 - Elevated white blood cell count, unspecified Disposition: ADMITTED INPATIENT Admitting Physician: MICHELLE Condition: STABLE Referrals: MADIE CHATTERJEE JR, MD (PCP) DEE SANTOS APRN Aug 06, 2021 15:46
[2021-08-06] MEDS ORDERED: ONDANSETRON PF 4 MG/2 ML VIAL. IVP ONE (16:30)
[2021-08-06 16:44] LABS: BASO # 0.1 x10^3/uL (0.0-0.2); BASO % 0 % (0-3); EOS % 0 % (0-3); HEMOGLOBIN 16.2 g/dL (12.0-15.5); LYMPH # 1.2 x10^3/uL (1.0-4.8); LYMPH % 4 % (24-48); MEAN CORPUSCULAR HEMOGLOBIN 30 pg (25-35); MEAN CORPUSCULAR HGB CONC 34 g/dL (31-37); MEAN CORPUSCULAR VOLUME 88 fL (79-100); MONO % 7 % (0-9); NEUT # 25.8 x10^3/uL (1.8-7.7); NEUT % 89 % (31-73); PLATELET COUNT 415 x10^3/uL (140-400); RED BLOOD COUNT 5.37 x10^6/uL (3.50-5.40); RED CELL DISTRIBUTION WIDTH 13.2 % (11.5-14.5); WHITE BLOOD COUNT 29.1 x10^3/uL (4.0-11.0)
[2021-08-06 16:58] LABS: CALCIUM 9.7 mg/dL (8.5-10.1); CREATININE 1.4 mg/dL (0.6-1.0); GFR 38.6; POTASSIUM 3.7 mmol/L (3.5-5.1)
[2021-08-06 17:01] LABS: ALBUMIN 4.1 g/dL (3.4-5.0); ALBUMIN/GLOBULIN RATIO 1.2 (1.0-1.7); TOTAL BILIRUBIN 1.3 mg/dL (0.2-1.0); TOTAL PROTEIN 7.6 g/dL (6.4-8.2)
[2021-08-06 17:26] LABS: % BANDS 5 % (0-9); % LYMPHS 6 % (24-48); % MONOS 3 % (0-10); % SEGS 86 % (35-66); BURR CELLS PRESENT; PLT ESTIMATE ADEQUATE (ADEQUATE)
--- NOTE | 2021-08-06 17:51 | RAD ---
CT abdomen pelvis without contrast. HISTORY: Abdominal pain and diarrhea CT abdomen pelvis was done without contrast. Lung bases are clear. There is no effusion. There are sm all hepatic cysts at the dome of the liver. Spleen is unremarkable. The patient's had a cholecystecto my. Adrenal glands are normal. Pancreas is unremarkable. There is no mass or hydronephrosis in the ki dneys. A renal or ureteral calculus is not identified. There is no bowel obstruction. There is no asc ites. Uterus and ovaries are unremarkable. There is not evidence of a diverticulitis. Appendix is nor mal. There is slight thickening the bowel wall the descending colon and sigmoid colon mild colitis or gastroenteritis could have this pattern. IMPRESSION: 1. No bowel obstruction. 3. No abdominal or pelvic mass noted. 3. Mild bowel wall thickening of the descending colon possible colitis or gastroenteritis. PQRS Compliance Statement: One or more of the following individualized dose reduction techniques were utilized for this examinat ion: 1. Automated exposure control 2. Adjustment of the mA and/or kV according to patient size 3. Use of iterative reconstruction technique Electronically signed by: Darrel Edge MD (08/06/2021 5:48 PM) [facility]
[2021-08-06 18:30] LABS: BACTERIA,URINE FEW /HPF (0-FEW); HYALINE CASTS, URINE FEW /HPF
[2021-08-06] MEDS ORDERED: ONDANSETRON PF 4 MG/2 ML VIAL. IVP PRN (19:15)
[2021-08-06] MEDS ORDERED: ACETAMINOPHEN 325 MG TABLET. PO PRN (19:30)
[2021-08-06] MEDS ORDERED: fentaNYL PF VIAL 100 MCG/2 ML VIAL IVP PRN (19:30)
[2021-08-06] MEDS: ONDANSETRON PF 4 MG/2 ML VIAL. IVP PRN (19:51)
[2021-08-06] MEDS: IV NORMAL SALINE 1000ML BAG 1,000 ML IV SCH (20:00)
[2021-08-06] MEDS ORDERED: POTASSIUM CL 20MEQ D5-0.45NACL 1,000 ML IV ONE (20:00)
[2021-08-06 20:05] VITALS: BP 144/85
[2021-08-06 22:58] VITALS: BP 140/82
[2021-08-07] MEDS: ONDANSETRON PF 4 MG/2 ML VIAL. IVP PRN ×5 (00:02→21:26)
[2021-08-07 02:54] VITALS: BP 114/57
[2021-08-07] MEDS: IV NORMAL SALINE 1000ML BAG 1,000 ML IV SCH ×2 (05:35→15:05)
[2021-08-07 06:31] LABS: BASO # 0.1 x10^3/uL (0.0-0.2); BASO % 1 % (0-3); EOS % 0 % (0-3); HEMATOCRIT 40.8 % (36.0-47.0); HEMOGLOBIN 13.8 g/dL (12.0-15.5); LYMPH # 1.5 x10^3/uL (1.0-4.8); LYMPH % 11 % (24-48); MEAN CORPUSCULAR HEMOGLOBIN 30 pg (25-35); MEAN CORPUSCULAR HGB CONC 34 g/dL (31-37); MEAN CORPUSCULAR VOLUME 88 fL (79-100); MONO # 0.9 x10^3/uL (0.0-1.1); MONO % 7 % (0-9); NEUT # 11.3 x10^3/uL (1.8-7.7); NEUT % 82 % (31-73); PLATELET COUNT 295 x10^3/uL (140-400); RED BLOOD COUNT 4.65 x10^6/uL (3.50-5.40); RED CELL DISTRIBUTION WIDTH 13.3 % (11.5-14.5); WHITE BLOOD COUNT 13.8 x10^3/uL (4.0-11.0)
[2021-08-07 07:00] VITALS: BP 125/77
[2021-08-07 07:02] LABS: ALBUMIN 3.1 g/dL (3.4-5.0); CALCIUM 8.4 mg/dL (8.5-10.1); GFR 56.9; POTASSIUM 4.1 mmol/L (3.5-5.1); TOTAL PROTEIN 6.1 g/dL (6.4-8.2)
[2021-08-07 11:00] VITALS: BP 121/66
[2021-08-07] MEDS ORDERED: HYDROcodone/APAP 5/325MG 1 TAB TABLET PO PRN (13:15)
--- NOTE | 2021-08-07 13:46 | PDOC1 ---
History and Physical Date of Admission Date of Admission DATE: 08/07/21 TIME: 13:29 Identification/Chief Complaint Chief Complaint Nausea/vomiting/diarrhea Source Source: Patient History of Present Illness History of Present Illness This is a 56-year-old female with past medical history HTN, asthma, presents to the ED with complaints of abdominal pain, vomiting, diarrhea. She reports sudden onset of her symptoms yesterday after eating chicken at a barbecue on Thursday. Reported friend at home is having similar symptoms of nausea. She reports 4 episodes of vomiting and 3 episodes of diarrhea since yesterday afternoon. She does note that to her episodes of diarrhea did have bright red blood in them, and no prior history of hemorrhoids. CT abdomen pelvis admission showed mild bowel wall thickening of the descending colon possible colitis or gastroenteritis. Labs admission showed WBC 29.1, BUN 27, creatinine 1.4. Stool occult blood was positive. She received metronidazole and IV fluids in the ED. Will admit patient for further medical management. Past Medical History Cardiovascular: HTN Pulmonary: Asthma CENTRAL NERVOUS SYSTEM: Seizure Heme/Onc: Anemia NOS Past Surgical History Past Surgical History: Cholecystectomy Family History Family History: Heart Disease Social History Smoke: No ALCOHOL: none Drugs: None Current Problem List Problem List Problems Medical Problems: (1) Diarrhea Status: Acute (2) Leukocytosis Status: Acute Current Medications Current Medications Current Medications Sodium Chloride 1,000 ml @ 999 mls/hr 1X ONCE IV Last administered on 08/06/21at 16:30; Start 08/06/21 at 15:30; Stop 08/06/21 at 16:30; Status DC Ondansetron HCl (Zofran) 4 mg 1X ONCE IVP Last administered on 08/06/21at 16:33; Start 08/06/21 at 16:30; Stop 08/06/21 at 16:31; Status DC Sodium Chloride 1,000 ml @ 999 mls/hr 1X ONCE IV Last administered on 08/06/21at 17:59; Start 08/06/21 at 17:30; Stop 08/06/21 at 18:30; Status DC Metronidazole 100 ml @ 100 mls/hr 1X ONCE IV Last administered on 08/06/21at 19:41; Start 08/06/21 at 19:15; Stop 08/06/21 at 20:14; Status DC Sodium Chloride 1,000 ml @ 100 mls/hr Q10H IV Last administered on 08/07/21at 05:35; Start 08/06/21 at 20:00 Ondansetron HCl (Zofran) 4 mg PRN Q8HRS PRN IVP NAUSEA/VOMITING; Start 08/06/21 at 19:15; Stop 08/06/21 at 19:28; Status DC Ondansetron HCl (Zofran) 4 mg PRN Q4HRS PRN IVP NAUSEA/VOMITING Last administered on 08/07/21at 10:17; Start 08/06/21 at 19:30 Acetaminophen (Tylenol) 650 mg PRN Q6HRS PRN PO MILD PAIN / TEMP > 100.3'F; Start 08/06/21 at 19:30 Fentanyl Citrate (Fentanyl 2ml Vial) 25 mcg PRN Q3HRS PRN IVP SEVERE PAIN 7-10; Start 08/06/21 at 19:30 Potassium Chloride/Dextrose/ Sod Cl 1,000 ml @ 75 mls/hr [id number] ONCE IV Last administered on 08/06/21at 20:00; Start 08/06/21 at 20:00; Stop 08/07/21 at 09:19; Status DC Atorvastatin Calcium (Lipitor) 40 mg HS PO ; Start 08/07/21 at 21:00 Ferrous Sulfate (Feosol) 325 mg DAILY PO ; Start 08/08/21 at 09:00 Metoprolol Tartrate (Lopressor) 50 mg BID PO ; Start 08/07/21 at 21:00 Aspirin (Aspirin Chewable) 81 mg DAILY PO ; Start 08/08/21 at 09:00 Acetaminophen/ Hydrocodone Bitart (Lortab 5/325) 1 tab PRN Q6HRS PRN PO MODERATE PAIN; Start 08/07/21 at 13:15 Active Scripts Active Zantac (Ranitidine Hcl) 150 Mg Tablet 1 Tab PO BID Cyclobenzaprine Hcl 10 Mg Tablet 1 Tab PO TID Cyclobenzaprine Hcl 10 Mg Tablet 1 Tab PO TID Meloxicam 15 Mg Tablet 1 Tab PO DAILY Advair 100-50 Diskus (Fluticasone/Salmeterol) 1 Each Disk.w.dev 1 Puff IH BID Metoprolol Tartrate 50 Mg Tablet 1 Tab PO BID [place] 5-325 Tablet (Acetaminophen/Hydrocodone Bitart) 1 Each Tablet 1 Tab PO PRN Q6HRS PRN DO NOT FILL IF SHE HAS HARD NARCOTICS RX FILLED IN THE LAST SEVEN DAYS Reported Omeprazole 40 Mg Capsule.dr 40 Mg PO DAILY Advair 100-50 Diskus (Fluticasone/Salmeterol) 1 Each Disk.w.dev 1 Inh IH BID Proair Hfa Inhaler (Albuterol Sulfate) 8.5 Gm Hfa.aer.ad 1 Puff INH PRN Q6HRS PRN Ferrous Sulfate 325 Mg Tablet 325 Mg PO DAILY Meloxicam 15 Mg Tablet 15 Mg PO DAILY Lipitor (Atorvastatin Calcium) 40 Mg Tablet 40 Mg PO HS Cyclobenzaprine Hcl 10 Mg Tablet 10 Mg PO TID Aspirin 81 Mg Tab.chew 1 Tab PO DAILY Allergies Allergies: Coded Allergies: meclizine (Verified Allergy, Intermediate, Itching, 08/06/21) prednisone (Verified Allergy, Intermediate, Itching, 08/06/21) tramadol (Verified Allergy, Intermediate, 08/06/21) SEIZURES ROS Review of System GENERAL: No history of weight change, weakness or fevers. SKIN: No bruising, hair changes or rashes. EYES: No blurred, double or loss of vision. NOSE AND THROAT: No history of nosebleeds, hoarseness or sore throat. HEART: Denies chest pain, denies palpitations. LUNGS: Denies cough, hemoptysis, wheezing or shortness of breath. GASTROINTESTINAL: Abdominal pain, nausea, vomiting, diarrhea. GENITOURINARY: Denies dysuria, frequency, urgency, hematuria. NEUROLOGIC: Denies history of numbness, tingling, tremor or weakness. PSYCHIATRIC: Denies anxiety, denies depression. ENDOCRINE: No history of heat or cold intolerance, polyuria or polydipsia. EXTREMITIES: Denies muscle weakness, joint pain, pain on walking or stiffness. Physical Exam Physical Exam General: Alert, Oriented X3, Cooperative, No acute distress HEENT: PERRLA, EOMI Lungs: Clear to auscultation, Normal air movement Heart: RRR, no murmurs Cardiovascular: S1, S2 Abdomen: Lower abdominal tenderness. Soft. Extremities: No clubbing, No cyanosis Skin: No rashes, No significant lesion Neuro: Normal speech, Normal tone, Sensation intact Psych/Mental Status: Mental status NL, Mood NL Vitals Vitals Vital Signs Date Time Temp Pulse Resp B/P (MAP) Pulse Ox O2 Delivery O2 Flow Rate FiO2 08/07/21 11:00 98.6 74 20 121/66 (84) 95 Room Air 98.6 Labs Labs Laboratory Tests Test 08/06/21 15:30 08/06/21 16:30 08/06/21 18:07 08/07/21 04:40 Stool Occult Blood Positive (NEG) White Blood Count 29.1 x10^3/uL (4.0-11.0) 13.8 x10^3/uL (4.0-11.0) Red Blood Count 5.37 x10^6/uL (3.50-5.40) 4.65 x10^6/uL (3.50-5.40) Hemoglobin 16.2 g/dL (12.0-15.5) 13.8 g/dL (12.0-15.5) Hematocrit 47.0 % (36.0-47.0) 40.8 % (36.0-47.0) Mean Corpuscular Volume 88 fL (79-100) 88 fL (79-100) Mean Corpuscular Hemoglobin 30 pg (25-35) 30 pg (25-35) Mean Corpuscular Hemoglobin Concent 34 g/dL (31-37) 34 g/dL (31-37) Red Cell Distribution Width 13.2 % (11.5-14.5) 13.3 % (11.5-14.5) Platelet Count 415 x10^3/uL (140-400) 295 x10^3/uL (140-400) Neutrophils (%) (Auto) 89 % (31-73) 82 % (31-73) Lymphocytes (%) (Auto) 4 % (24-48) 11 % (24-48) Monocytes (%) (Auto) 7 % (0-9) 7 % (0-9) Eosinophils (%) (Auto) 0 % (0-3) 0 % (0-3) Basophils (%) (Auto) 0 % (0-3) 1 % (0-3) Neutrophils # (Auto) 25.8 x10^3/uL (1.8-7.7) 11.3 x10^3/uL (1.8-7.7) Lymphocytes # (Auto) 1.2 x10^3/uL (1.0-4.8) 1.5 x10^3/uL (1.0-4.8) Monocytes # (Auto) 2.0 x10^3/uL (0.0-1.1) 0.9 x10^3/uL (0.0-1.1) Eosinophils # (Auto) 0.0 x10^3/uL (0.0-0.7) 0.0 x10^3/uL (0.0-0.7) Basophils # (Auto) 0.1 x10^3/uL (0.0-0.2) 0.1 x10^3/uL (0.0-0.2) Segmented Neutrophils % 86 % (35-66) Band Neutrophils % 5 % (0-9) Lymphocytes % 6 % (24-48) Monocytes % 3 % (0-10) Platelet Estimate Adequate (ADEQUATE) [place] Cells Present Sodium Level 139 mmol/L (136-145) 138 mmol/L (136-145) Potassium Level 3.7 mmol/L (3.5-5.1) 4.1 mmol/L (3.5-5.1) Chloride Level 100 mmol/L (98-107) 105 mmol/L (98-107) Carbon Dioxide Level 27 mmol/L (21-32) 25 mmol/L (21-32) Anion Gap 12 (6-14) 8 (6-14) Blood Urea Nitrogen 27 mg/dL (7-20) 21 mg/dL (7-20) Creatinine 1.4 mg/dL (0.6-1.0) 1.0 mg/dL (0.6-1.0) Estimated GFR (Cockcroft-Gault) 38.6 56.9 BUN/Creatinine Ratio 19 (6-20) 21 (6-20) Glucose Level 182 mg/dL (70-99) 134 mg/dL (70-99) Calcium Level 9.7 mg/dL (8.5-10.1) 8.4 mg/dL (8.5-10.1) Total Bilirubin 1.3 mg/dL (0.2-1.0) 1.0 mg/dL (0.2-1.0) Aspartate Amino Transf (AST/SGOT) 14 U/L (15-37) 13 U/L (15-37) Alanine Aminotransferase (ALT/SGPT) 25 U/L (14-59) 19 U/L (14-59) Alkaline Phosphatase 91 U/L (46-116) 69 U/L (46-116) Total Protein 7.6 g/dL (6.4-8.2) 6.1 g/dL (6.4-8.2) Albumin 4.1 g/dL (3.4-5.0) 3.1 g/dL (3.4-5.0) Albumin/Globulin Ratio 1.2 (1.0-1.7) 1.0 (1.0-1.7) Lipase 30 U/L (73-393) Urine Collection Type Unknown Urine Color (Auto) Dark yellow Urine Turbidity Clear Urine pH (Auto) 5.0 (<5.0-8.0) Urine Specific [place] 1.022 (1.000-1.030) Urine Protein (Auto) Negative mg/dL (Negative) Urine Glucose (Auto)(UA) Negative mg/dL (Negative) Urine Ketones (Auto) Negative mg/dL (Negative) Urine Blood (Auto) Negative (Negative) Urine Nitrite Negative (Negative) Urine Bilirubin (Auto) Negative (Negative) Urine Urobilinogen (Auto) 2 mg/dL (Normal) Urine Leukocyte Esterase (Auto) Negative (Negative) Urine RBC 1-2 /HPF (0-2) Urine WBC 1-4 /HPF (0-4) Urine Squamous Epithelial Cells Mod /LPF Urine Bacteria Few /HPF (0-FEW) Urine Hyaline Casts Few /HPF Urine Mucus Mod /LPF Laboratory Tests Test 08/06/21 15:30 08/06/21 16:30 08/06/21 18:07 08/07/21 04:40 Stool Occult Blood Positive (NEG) White Blood Count 29.1 x10^3/uL (4.0-11.0) 13.8 x10^3/uL (4.0-11.0) Red Blood Count 5.37 x10^6/uL (3.50-5.40) 4.65 x10^6/uL (3.50-5.40) Hemoglobin 16.2 g/dL (12.0-15.5) 13.8 g/dL (12.0-15.5) Hematocrit 47.0 % (36.0-47.0) 40.8 % (36.0-47.0) Mean Corpuscular Volume 88 fL (79-100) 88 fL (79-100) Mean Corpuscular Hemoglobin 30 pg (25-35) 30 pg (25-35) Mean Corpuscular Hemoglobin Concent 34 g/dL (31-37) 34 g/dL (31-37) Red Cell Distribution Width 13.2 % (11.5-14.5) 13.3 % (11.5-14.5) Platelet Count 415 x10^3/uL (140-400) 295 x10^3/uL (140-400) Neutrophils (%) (Auto) 89 % (31-73) 82 % (31-73) Lymphocytes (%) (Auto) 4 % (24-48) 11 % (24-48) Monocytes (%) (Auto) 7 % (0-9) 7 % (0-9) Eosinophils (%) (Auto) 0 % (0-3) 0 % (0-3) Basophils (%) (Auto) 0 % (0-3) 1 % (0-3) Neutrophils # (Auto) 25.8 x10^3/uL (1.8-7.7) 11.3 x10^3/uL (1.8-7.7) Lymphocytes # (Auto) 1.2 x10^3/uL (1.0-4.8) 1.5 x10^3/uL (1.0-4.8) Monocytes # (Auto) 2.0 x10^3/uL (0.0-1.1) 0.9 x10^3/uL (0.0-1.1) Eosinophils # (Auto) 0.0 x10^3/uL (0.0-0.7) 0.0 x10^3/uL (0.0-0.7) Basophils # (Auto) 0.1 x10^3/uL (0.0-0.2) 0.1 x10^3/uL (0.0-0.2) Segmented Neutrophils % 86 % (35-66) Band Neutrophils % 5 % (0-9) Lymphocytes % 6 % (24-48) Monocytes % 3 % (0-10) Platelet Estimate Adequate (ADEQUATE) [place] Cells Present Sodium Level 139 mmol/L (136-145) 138 mmol/L (136-145) Potassium Level 3.7 mmol/L (3.5-5.1) 4.1 mmol/L (3.5-5.1) Chloride Level 100 mmol/L (98-107) 105 mmol/L (98-107) Carbon Dioxide Level 27 mmol/L (21-32) 25 mmol/L (21-32) Anion Gap 12 (6-14) 8 (6-14) Blood Urea Nitrogen 27 mg/dL (7-20) 21 mg/dL (7-20) Creatinine 1.4 mg/dL (0.6-1.0) 1.0 mg/dL (0.6-1.0) Estimated GFR (Cockcroft-Gault) 38.6 56.9 BUN/Creatinine Ratio 19 (6-20) 21 (6-20) Glucose Level 182 mg/dL (70-99) 134 mg/dL (70-99) Calcium Level 9.7 mg/dL (8.5-10.1) 8.4 mg/dL (8.5-10.1) Total Bilirubin 1.3 mg/dL (0.2-1.0) 1.0 mg/dL (0.2-1.0) Aspartate Amino Transf (AST/SGOT) 14 U/L (15-37) 13 U/L (15-37) Alanine Aminotransferase (ALT/SGPT) 25 U/L (14-59) 19 U/L (14-59) Alkaline Phosphatase 91 U/L (46-116) 69 U/L (46-116) Total Protein 7.6 g/dL (6.4-8.2) 6.1 g/dL (6.4-8.2) Albumin 4.1 g/dL (3.4-5.0) 3.1 g/dL (3.4-5.0) Albumin/Globulin Ratio 1.2 (1.0-1.7) 1.0 (1.0-1.7) Lipase 30 U/L (73-393) Urine Collection Type Unknown Urine Color (Auto) Dark yellow Urine Turbidity Clear Urine pH (Auto) 5.0 (<5.0-8.0) Urine Specific [place] 1.022 (1.000-1.030) Urine Protein (Auto) Negative mg/dL (Negative) Urine Glucose (Auto)(UA) Negative mg/dL (Negative) Urine Ketones (Auto) Negative mg/dL (Negative) Urine Blood (Auto) Negative (Negative) Urine Nitrite Negative (Negative) Urine Bilirubin (Auto) Negative (Negative) Urine Urobilinogen (Auto) 2 mg/dL (Normal) Urine Leukocyte Esterase (Auto) Negative (Negative) Urine RBC 1-2 /HPF (0-2) Urine WBC 1-4 /HPF (0-4) Urine Squamous Epithelial Cells Mod /LPF Urine Bacteria Few /HPF (0-FEW) Urine Hyaline Casts Few /HPF Urine Mucus Mod /LPF Images Images PATIENT: KARLY DENNY ACCOUNT: [id number] : 1965 LOCATION: ER AGE: 56 SEX: F EXAM STATUS: REG ER ORD. PHYSICIAN: DEE SANTOS APRN REASON: abdominal pain and diarrhea PROCEDURE: CT ABDOMEN PELVIS WO CONTRAST CT abdomen pelvis without contrast. HISTORY: Abdominal pain and diarrhea CT abdomen pelvis was done without contrast. Lung bases are clear. There is no e ffusion. There are small hepatic cysts at the dome of the liver. Spleen is unremarkable. The patient's had a cholecystectomy. Adrenal glands are normal. Pancreas is unremarkable. There is no mass or hydronephrosis in the kidneys. A renal or ureteral calculus is not identified. There is no bowel obstruction. There is no ascites. Uterus and ovaries are unremarkable. There is not evidence of a diverticulitis. Appendix is normal. There is slight thickening the bowel wall the descending colon and sigmoid colon mild colitis or gastroenteritis could have this pattern. IMPRESSION: 1. No bowel obstruction. 3. No abdominal or pelvic mass noted. 3. Mild bowel wall thickening of the descending colon possible colitis or gastroenteritis. VTE Prophylaxis Ordered VTE Prophylaxis Devices: Yes VTE Pharmacological Prophylaxi: No Assessment/Plan Assessment/Plan Gastroenteritis ELOINA HTN Anemia Plan: At the time my evaluation patient symptoms of largely resolved. Still with suprapubic tenderness. Still complains of nausea Continue IV fluids Bright red blood per rectum due to gastroenteritis and likely internal hemorrhoids. She has never been screened with colonoscopy and defer screening with at this time. Recommend she follow-up with her PCP with outpatient GI referral. Will trial on clear liquids and advance diet as tolerated. Anticipate discharge tomorrow if continues symptomatic improvement Resume home medications FEN - ADAT PPX - SCDs FULL CODE Dispo - inpatient for above Justifications for Admission Other Justification CIPRIANO ARMSTRONG MD Aug 07, 2021 13:46
[2021-08-07 15:00] VITALS: BP 126/67
[2021-08-07] MEDS ORDERED: LEVE750T23 PO (18:35)
[2021-08-07] MEDS ORDERED: FAMO20TA5 PO (18:35)
[2021-08-07] MEDS ORDERED: CYCL10TA19 PO (18:35)
[2021-08-07] MEDS ORDERED: LOSA100T14 PO (18:35)
[2021-08-07 19:00] VITALS: BP 132/71
[2021-08-07] MEDS ORDERED: ATORVASTATIN CALCIUM 40 MG TABLET. PO SCH (21:00)
[2021-08-07] MEDS: METOPROLOL TART IMMED RELEASE 50 MG TABLET. PO SCH (21:26)
[2021-08-07 23:00] VITALS: BP 135/73
[2021-08-08] MEDS: IV NORMAL SALINE 1000ML BAG 1,000 ML IV SCH ×2 (00:05→09:28)
[2021-08-08 03:00] VITALS: BP 117/67
[2021-08-08 07:00] VITALS: BP 120/62
[2021-08-08 07:25] LABS: BASO # 0.1 x10^3/uL (0.0-0.2); BASO % 1 % (0-3); EOS # 0.1 x10^3/uL (0.0-0.7); EOS % 1 % (0-3); HEMATOCRIT 38.8 % (36.0-47.0); HEMOGLOBIN 13.3 g/dL (12.0-15.5); LYMPH # 1.6 x10^3/uL (1.0-4.8); LYMPH % 19 % (24-48); MEAN CORPUSCULAR HEMOGLOBIN 30 pg (25-35); MEAN CORPUSCULAR HGB CONC 34 g/dL (31-37); MEAN CORPUSCULAR VOLUME 88 fL (79-100); MONO # 0.7 x10^3/uL (0.0-1.1); MONO % 9 % (0-9); NEUT # 6.2 x10^3/uL (1.8-7.7); NEUT % 71 % (31-73); PLATELET COUNT 271 x10^3/uL (140-400); RED BLOOD COUNT 4.41 x10^6/uL (3.50-5.40); RED CELL DISTRIBUTION WIDTH 13.3 % (11.5-14.5); WHITE BLOOD COUNT 8.8 x10^3/uL (4.0-11.0)
[2021-08-08 07:29] LABS: ALBUMIN 3.2 g/dL (3.4-5.0); ALBUMIN/GLOBULIN RATIO 1.1 (1.0-1.7); CALCIUM 8.3 mg/dL (8.5-10.1); GFR 56.9; POTASSIUM 3.9 mmol/L (3.5-5.1); TOTAL BILIRUBIN 1.1 mg/dL (0.2-1.0)
[2021-08-08] MEDS: ONDANSETRON PF 4 MG/2 ML VIAL. IVP PRN (08:28)
[2021-08-08] MEDS: METOPROLOL TART IMMED RELEASE 50 MG TABLET. PO SCH (08:29)
[2021-08-08] MEDS ORDERED: FERROUS SULFATE 325 MG TABLET. PO SCH (09:00)
[2021-08-08] MEDS ORDERED: levETIRAcetam 250 MG TABLET PO SCH (09:00)
[2021-08-08] MEDS ORDERED: ASPIRIN CHEWABLE 81 MG TABLET. PO SCH (09:00)
--- NOTE | 2021-08-08 10:07 | PDOC ---
[employer] PROGRESS NOTE Date of Service DOS: DATE: 08/08/21 TIME: 10:05 Chief Complaint Chief Complaint Gastroenteritis ELOINA HTN Anemia History of Present Illness History of Present Illness 08/08: Patient seen and evaluated at bedside. She reports improvement in her nausea and vomiting. Still with some diarrhea, but this can be managed at home with clear liquid diet. Discussed this at length with patient how to manage her symptoms, she feels comfortable discharging home with self-care. Greater than 30 minutes was spent managing the discharge of this patient Vitals/I&O Vitals/I&O: Vital Signs Date Time Temp Pulse Resp B/P (MAP) Pulse Ox O2 Delivery O2 Flow Rate FiO2 08/08/21 08:29 68 120/62 08/08/21 08:00 Room Air 08/08/21 07:00 98.1 20 96 98.1 I & O 08/07/21 08/07/21 08/08/21 15:00 23:00 07:00 Intake Total 240 ml Output Total 900 ml Balance 240 ml -900 ml Physical Exam General: Alert, Cooperative, No acute distress Heart: Regular rate Lungs: Clear Abdomen: Soft, No hepatosplenomegaly, No masses Extremities: No clubbing, No cyanosis Skin: No rashes, No breakdown Labs Labs: Laboratory Tests Test 08/08/21 06:20 White Blood Count 8.8 x10^3/uL (4.0-11.0) Red Blood Count 4.41 x10^6/uL (3.50-5.40) Hemoglobin 13.3 g/dL (12.0-15.5) Hematocrit 38.8 % (36.0-47.0) Mean Corpuscular Volume 88 fL (79-100) Mean Corpuscular Hemoglobin 30 pg (25-35) Mean Corpuscular Hemoglobin Concent 34 g/dL (31-37) Red Cell Distribution Width 13.3 % (11.5-14.5) Platelet Count 271 x10^3/uL (140-400) Neutrophils (%) (Auto) 71 % (31-73) Lymphocytes (%) (Auto) 19 % (24-48) Monocytes (%) (Auto) 9 % (0-9) Eosinophils (%) (Auto) 1 % (0-3) Basophils (%) (Auto) 1 % (0-3) Neutrophils # (Auto) 6.2 x10^3/uL (1.8-7.7) Lymphocytes # (Auto) 1.6 x10^3/uL (1.0-4.8) Monocytes # (Auto) 0.7 x10^3/uL (0.0-1.1) Eosinophils # (Auto) 0.1 x10^3/uL (0.0-0.7) Basophils # (Auto) 0.1 x10^3/uL (0.0-0.2) Sodium Level 139 mmol/L (136-145) Potassium Level 3.9 mmol/L (3.5-5.1) Chloride Level 105 mmol/L (98-107) Carbon Dioxide Level 26 mmol/L (21-32) Anion Gap 8 (6-14) Blood Urea Nitrogen 17 mg/dL (7-20) Creatinine 1.0 mg/dL (0.6-1.0) Estimated GFR (Cockcroft-Gault) 56.9 BUN/Creatinine Ratio 17 (6-20) Glucose Level 108 mg/dL (70-99) Calcium Level 8.3 mg/dL (8.5-10.1) Total Bilirubin 1.1 mg/dL (0.2-1.0) Aspartate Amino Transf (AST/SGOT) 18 U/L (15-37) Alanine Aminotransferase (ALT/SGPT) 20 U/L (14-59) Alkaline Phosphatase 59 U/L (46-116) Total Protein 6.0 g/dL (6.4-8.2) Albumin 3.2 g/dL (3.4-5.0) Albumin/Globulin Ratio 1.1 (1.0-1.7) Assessment and Plan Assessmemt and Plan Problems Medical Problems: (1) Diarrhea Status: Acute (2) Leukocytosis Status: Acute Comment Review of Relevant I have reviewed the following items marshall (where applicable) has been applied. Medications: Current Medications Medications (Trade) Dose Ordered Sig/Scott Route PRN Reason Start Time Stop Time Status Last Admin Dose Admin Atorvastatin Calcium (Lipitor) 40 mg HS PO 08/07/21 21:00 08/07/21 21:26 Ferrous Sulfate (Feosol) 325 mg DAILY PO 08/08/21 09:00 08/08/21 08:28 Metoprolol Tartrate (Lopressor) 50 mg BID PO 08/07/21 21:00 08/08/21 08:29 Aspirin (Aspirin Chewable) 81 mg DAILY PO 08/08/21 09:00 08/08/21 08:28 Levetiracetam (Keppra) 750 mg BID PO 08/08/21 09:00 08/08/21 09:27 Justifications for Admission Other Justification CIPRIANO ARMSTRONG MD Aug 08, 2021 10:06
--- NOTE | 2021-08-08 10:08 | PDOC3 ---
Discharge Summary Visit Information Date of Admission: Aug 07, 2021 Date of Discharge: Aug 08, 2021 Final Diagnosis Problems Medical Problems: (1) Diarrhea Status: Acute (2) Leukocytosis Status: Acute Brief Hospital Course Allergies Allergies Coded Allergies Type Severity Reaction Last Updated Verified meclizine Allergy Intermediate Itching 08/06/21 Yes prednisone Allergy Intermediate Itching 08/06/21 Yes tramadol Allergy Intermediate 08/06/21 Yes Vital Signs Vital Signs Date Time Temp Pulse Resp B/P (MAP) Pulse Ox O2 Delivery O2 Flow Rate FiO2 08/08/21 08:29 68 120/62 08/08/21 08:00 Room Air 08/08/21 07:00 98.1 20 96 98.1 Lab Results Laboratory Tests Test 08/06/21 15:30 08/06/21 16:30 08/06/21 18:07 08/07/21 04:40 Stool Occult Blood Positive (NEG) White Blood Count 29.1 x10^3/uL (4.0-11.0) 13.8 x10^3/uL (4.0-11.0) Red Blood Count 5.37 x10^6/uL (3.50-5.40) 4.65 x10^6/uL (3.50-5.40) Hemoglobin 16.2 g/dL (12.0-15.5) 13.8 g/dL (12.0-15.5) Hematocrit 47.0 % (36.0-47.0) 40.8 % (36.0-47.0) Mean Corpuscular Volume 88 fL (79-100) 88 fL (79-100) Mean Corpuscular Hemoglobin 30 pg (25-35) 30 pg (25-35) Mean Corpuscular Hemoglobin Concent 34 g/dL (31-37) 34 g/dL (31-37) Red Cell Distribution Width 13.2 % (11.5-14.5) 13.3 % (11.5-14.5) Platelet Count 415 x10^3/uL (140-400) 295 x10^3/uL (140-400) Neutrophils (%) (Auto) 89 % (31-73) 82 % (31-73) Lymphocytes (%) (Auto) 4 % (24-48) 11 % (24-48) Monocytes (%) (Auto) 7 % (0-9) 7 % (0-9) Eosinophils (%) (Auto) 0 % (0-3) 0 % (0-3) Basophils (%) (Auto) 0 % (0-3) 1 % (0-3) Neutrophils # (Auto) 25.8 x10^3/uL (1.8-7.7) 11.3 x10^3/uL (1.8-7.7) Lymphocytes # (Auto) 1.2 x10^3/uL (1.0-4.8) 1.5 x10^3/uL (1.0-4.8) Monocytes # (Auto) 2.0 x10^3/uL (0.0-1.1) 0.9 x10^3/uL (0.0-1.1) Eosinophils # (Auto) 0.0 x10^3/uL (0.0-0.7) 0.0 x10^3/uL (0.0-0.7) Basophils # (Auto) 0.1 x10^3/uL (0.0-0.2) 0.1 x10^3/uL (0.0-0.2) Segmented Neutrophils % 86 % (35-66) Band Neutrophils % 5 % (0-9) Lymphocytes % 6 % (24-48) Monocytes % 3 % (0-10) Platelet Estimate Adequate (ADEQUATE) Karthik Cells Present Sodium Level 139 mmol/L (136-145) 138 mmol/L (136-145) Potassium Level 3.7 mmol/L (3.5-5.1) 4.1 mmol/L (3.5-5.1) Chloride Level 100 mmol/L (98-107) 105 mmol/L (98-107) Carbon Dioxide Level 27 mmol/L (21-32) 25 mmol/L (21-32) Anion Gap 12 (6-14) 8 (6-14) Blood Urea Nitrogen 27 mg/dL (7-20) 21 mg/dL (7-20) Creatinine 1.4 mg/dL (0.6-1.0) 1.0 mg/dL (0.6-1.0) Estimated GFR (Cockcroft-Gault) 38.6 56.9 BUN/Creatinine Ratio 19 (6-20) 21 (6-20) Glucose Level 182 mg/dL (70-99) 134 mg/dL (70-99) Calcium Level 9.7 mg/dL (8.5-10.1) 8.4 mg/dL (8.5-10.1) Total Bilirubin 1.3 mg/dL (0.2-1.0) 1.0 mg/dL (0.2-1.0) Aspartate Amino Transf (AST/SGOT) 14 U/L (15-37) 13 U/L (15-37) Alanine Aminotransferase (ALT/SGPT) 25 U/L (14-59) 19 U/L (14-59) Alkaline Phosphatase 91 U/L (46-116) 69 U/L (46-116) Total Protein 7.6 g/dL (6.4-8.2) 6.1 g/dL (6.4-8.2) Albumin 4.1 g/dL (3.4-5.0) 3.1 g/dL (3.4-5.0) Albumin/Globulin Ratio 1.2 (1.0-1.7) 1.0 (1.0-1.7) Lipase 30 U/L (73-393) Urine Collection Type Unknown Urine Color (Auto) Dark yellow Urine Turbidity Clear Urine pH (Auto) 5.0 (<5.0-8.0) Urine Specific [place] 1.022 (1.000-1.030) Urine Protein (Auto) Negative mg/dL (Negative) Urine Glucose (Auto)(UA) Negative mg/dL (Negative) Urine Ketones (Auto) Negative mg/dL (Negative) Urine Blood (Auto) Negative (Negative) Urine Nitrite Negative (Negative) Urine Bilirubin (Auto) Negative (Negative) Urine Urobilinogen (Auto) 2 mg/dL (Normal) Urine Leukocyte Esterase (Auto) Negative (Negative) Urine RBC 1-2 /HPF (0-2) Urine WBC 1-4 /HPF (0-4) Urine Squamous Epithelial Cells Mod /LPF Urine Bacteria Few /HPF (0-FEW) Urine Hyaline Casts Few /HPF Urine Mucus Mod /LPF Test 08/08/21 06:20 White Blood Count 8.8 x10^3/uL (4.0-11.0) Red Blood Count 4.41 x10^6/uL (3.50-5.40) Hemoglobin 13.3 g/dL (12.0-15.5) Hematocrit 38.8 % (36.0-47.0) Mean Corpuscular Volume 88 fL (79-100) Mean Corpuscular Hemoglobin 30 pg (25-35) Mean Corpuscular Hemoglobin Concent 34 g/dL (31-37) Red Cell Distribution Width 13.3 % (11.5-14.5) Platelet Count 271 x10^3/uL (140-400) Neutrophils (%) (Auto) 71 % (31-73) Lymphocytes (%) (Auto) 19 % (24-48) Monocytes (%) (Auto) 9 % (0-9) Eosinophils (%) (Auto) 1 % (0-3) Basophils (%) (Auto) 1 % (0-3) Neutrophils # (Auto) 6.2 x10^3/uL (1.8-7.7) Lymphocytes # (Auto) 1.6 x10^3/uL (1.0-4.8) Monocytes # (Auto) 0.7 x10^3/uL (0.0-1.1) Eosinophils # (Auto) 0.1 x10^3/uL (0.0-0.7) Basophils # (Auto) 0.1 x10^3/uL (0.0-0.2) Sodium Level 139 mmol/L (136-145) Potassium Level 3.9 mmol/L (3.5-5.1) Chloride Level 105 mmol/L (98-107) Carbon Dioxide Level 26 mmol/L (21-32) Anion Gap 8 (6-14) Blood Urea Nitrogen 17 mg/dL (7-20) Creatinine 1.0 mg/dL (0.6-1.0) Estimated GFR (Cockcroft-Gault) 56.9 BUN/Creatinine Ratio 17 (6-20) Glucose Level 108 mg/dL (70-99) Calcium Level 8.3 mg/dL (8.5-10.1) Total Bilirubin 1.1 mg/dL (0.2-1.0) Aspartate Amino Transf (AST/SGOT) 18 U/L (15-37) Alanine Aminotransferase (ALT/SGPT) 20 U/L (14-59) Alkaline Phosphatase 59 U/L (46-116) Total Protein 6.0 g/dL (6.4-8.2) Albumin 3.2 g/dL (3.4-5.0) Albumin/Globulin Ratio 1.1 (1.0-1.7) Laboratory Tests Test 08/08/21 06:20 White Blood Count 8.8 x10^3/uL (4.0-11.0) Red Blood Count 4.41 x10^6/uL (3.50-5.40) Hemoglobin 13.3 g/dL (12.0-15.5) Hematocrit 38.8 % (36.0-47.0) Mean Corpuscular Volume 88 fL (79-100) Mean Corpuscular Hemoglobin 30 pg (25-35) Mean Corpuscular Hemoglobin Concent 34 g/dL (31-37) Red Cell Distribution Width 13.3 % (11.5-14.5) Platelet Count 271 x10^3/uL (140-400) Neutrophils (%) (Auto) 71 % (31-73) Lymphocytes (%) (Auto) 19 % (24-48) Monocytes (%) (Auto) 9 % (0-9) Eosinophils (%) (Auto) 1 % (0-3) Basophils (%) (Auto) 1 % (0-3) Neutrophils # (Auto) 6.2 x10^3/uL (1.8-7.7) Lymphocytes # (Auto) 1.6 x10^3/uL (1.0-4.8) Monocytes # (Auto) 0.7 x10^3/uL (0.0-1.1) Eosinophils # (Auto) 0.1 x10^3/uL (0.0-0.7) Basophils # (Auto) 0.1 x10^3/uL (0.0-0.2) Sodium Level 139 mmol/L (136-145) Potassium Level 3.9 mmol/L (3.5-5.1) Chloride Level 105 mmol/L (98-107) Carbon Dioxide Level 26 mmol/L (21-32) Anion Gap 8 (6-14) Blood Urea Nitrogen 17 mg/dL (7-20) Creatinine 1.0 mg/dL (0.6-1.0) Estimated GFR (Cockcroft-Gault) 56.9 BUN/Creatinine Ratio 17 (6-20) Glucose Level 108 mg/dL (70-99) Calcium Level 8.3 mg/dL (8.5-10.1) Total Bilirubin 1.1 mg/dL (0.2-1.0) Aspartate Amino Transf (AST/SGOT) 18 U/L (15-37) Alanine Aminotransferase (ALT/SGPT) 20 U/L (14-59) Alkaline Phosphatase 59 U/L (46-116) Total Protein 6.0 g/dL (6.4-8.2) Albumin 3.2 g/dL (3.4-5.0) Albumin/Globulin Ratio 1.1 (1.0-1.7) Brief Hospital Course Ms. Tang is a 56 old female who presented with gastroenteritis, ELOINA. She was treated with IV fluids, bowel rest, symptomatic management. She improved with treatment and was stable for discharge home for further management of her symptoms at home. Discharge Information Condition at Discharge: Improved Disposition/Orders: D/C to Home Scheduled Aspirin (Aspirin) 81 Mg Tab.chew, 1 TAB PO DAILY, #30 Ref 3 (Reported) Entered as Reported by: Alejandra Alegre on 05/08/16 1207 Last Action: Reviewed on 08/07/211834 by CAMILO RAMIREZ RN Atorvastatin Calcium (Lipitor) 40 Mg Tablet, 40 MG PO HS for FOR CHOLESTEROL, #30 Ref 0 (Reported) Entered as Reported by: YUE COLMENARES on 05/21/161540 Last Action: Continued on 08/07/211304 by CIPRIANO ARMSTRONG MD Famotidine (Famotidine) 20 Mg Tablet, 20 MG PO HS for GERD, (Reported) Entered as Reported by: CAMILO RAMIREZ RN on 08/07/211834 Last Action: New Order on 08/07/211834 by CAMILO RAMIREZ RN Ferrous Sulfate (Ferrous Sulfate) 325 Mg Tablet, 325 MG PO DAILY, (Reported) Entered as Reported by: YUE COLMENARES on 05/21/161541 Last Action: Continued on 08/07/211304 by CIPRIANO ARMSTRONG MD Fluticasone/Salmeterol (Advair 100-50 Diskus) 1 Each Disk.w.dev, 1 INH IH BID, (Reported) Entered as Reported by: YUE COLMENARES on 05/21/161551 Last Action: Reviewed on 08/07/211834 by CAMILO RAMIREZ RN Fluticasone/Salmeterol (Advair 100-50 Diskus) 1 Each Disk.w.dev, 1 PUFF IH BID, #1 Ref 1 Prescribed by: Caroline Galarza APRN on 12/03/162020 Levetiracetam (Levetiracetam) 750 Mg Tab.er.24h, 1 TAB PO BID for seizures for 30 Days, #60 Ref 0 (Reported) Entered as Reported by: CAMILO RAMIREZ RN on 08/07/211834 Last Action: Converted on 08/08/21 0846 by CAMILO RAMIREZ RN Losartan Potassium (Losartan Potassium) 100 Mg Tablet, 100 MG PO DAILY for HYPERTENSION, (Reported) Entered as Reported by: CAMILO RAMIREZ RN on 08/07/211834 Last Action: New Order on 08/07/211834 by CAMILO RAMIREZ RN Meloxicam (Meloxicam) 15 Mg Tablet, 1 TAB PO DAILY, #30 Ref 0 Prescribed by: Caroline Galarza APRN on 12/03/162020 Last Action: Reviewed on 08/07/211834 by CAMILO RAMIREZ RN Metoprolol Tartrate (Metoprolol Tartrate) 50 Mg Tablet, 1 TAB PO BID, #60 Ref 0 Prescribed by: Caroline Galarza APRN on 12/03/162020 Last Action: Continued on 08/07/21 1305 by CIPRIANO ARMSTRONG MD Omeprazole (Omeprazole) 40 Mg Capsule.dr, 40 MG PO DAILY, (Reported) Entered as Reported by: YUE COLMENARES on 05/21/161551 Ranitidine Hcl (Zantac) 150 Mg Tablet, 1 TAB PO BID, #20 Ref 3 Prescribed by: JEISON KENT MD on 11/04/17 0807 Scheduled PRN Albuterol Sulfate (Proair Hfa Inhaler) 8.5 Gm Hfa.aer.ad, 1 PUFF INH PRN Q6HRS PRN for SHORTNESS OF BREATH, Ref 0 (Reported) Entered as Reported by: YUE COLMENARES on 05/21/161551 Last Action: Reviewed on 08/07/211834 by CAMILO RAMIREZ RN Cyclobenzaprine Hcl (Cyclobenzaprine Hcl) 10 Mg Tablet, 1 TAB PO QHS PRN for MUSCLE SPASMS, #30 (Reported) Entered as Reported by: CAMILO RAMIREZ RN on 08/07/211834 Last Action: New Order on 08/07/211834 by CAMILO RAMIREZ RN Hydrocodone/Apap 5-325 ([place] 5-325 Tablet) 1 Each Tablet, 1 TAB PO PRN Q6HRS PRN for PAIN, #10 Ref 0 DO NOT FILL IF SHE HAS HARD NARCOTICS RX FILLED IN THE LAST SEVEN DAYS Prescribed by: Caroline Galarza APRN on 11/07/16 1239 Last Action: Continued on 08/07/21 130 by CIPRIANO ARMSTRONG MD Discontinued Medications Meloxicam (Meloxicam) 15 Mg Tablet, 15 MG PO DAILY, (Reported) Entered as Reported by: YUE OCLMENARES on 05/21/16 1541 Last Action: Discontinued on 08/07/211834 by CAMILO RAMIREZ RN Justicifation of Admission Dx: Justifications for Admission: Justification of Admission Dx: Yes CIPRIANO ARMSTRONG MD Aug 08, 2021 10:08
--- NOTE | 2021-08-08 10:16 | EKG ---
[facility] [address] [place] [address] Test Date: 2021-08-06 Test Time: 15:35:52 Pat Name: KARLY DENNY Department: Room: 211 1 Gender: F Customer Success Specialist: : [id number] Requested By: DEE SANTOS Order Number: [id number] Reading MD: Ramin Longo Measurements Intervals [place] Rate: 103 P: 36 [place]: 156 QRS: 21 QRSD: 98 T: -1 QT: 328 QTc: 432 Interpretive Statements SINUS TACHYCARDIA Electronically Signed On 08-09-2021 13:40:34 CDT by Ramin Longo
[2021-08-08 11:00] VITALS: BP 129/64
--- NOTE | 2021-08-08 14:33 | NUR ---
Discharge Note: KARLY DENNY Discharge instructions and discharge home medications reviewed with Patient and a copy given. All questions have been answered and understanding verbalized. The following instructions and handouts were given: worsening symptoms, diet, medications, and activity. Discontinued lines and drains: IV discontinued from Rt AC, skin intact. Patient discharged to home with significant other via private vehicle.
== END 2021-08-08 14:15 | disposition home or self-care (01) | DRG 391 ==
LOC: ER 14:38 → 2 NORTH 19:05
PROVIDERS: ADMIT Internal Medicine; ATTEND Internal Medicine
DX: K52.9 Noninfective gastroenteritis and colitis, unspecified (principal); N17.0 Acute kidney failure with tubular necrosis; R65.11 Systemic inflammatory response syndrome (SIRS) of non-infectious origin with acute organ dysfunction; D64.9 Anemia, unspecified; E78.00 Pure hypercholesterolemia, unspecified; I10 Essential (primary) hypertension; J45.909 Unspecified asthma, uncomplicated; K21.9 Gastro-esophageal reflux disease without esophagitis; K76.89 Other specified diseases of liver; R56.9 Unspecified convulsions; Z79.51 Long term (current) use of inhaled steroids; Z79.82 Long term (current) use of aspirin; Z79.899 Other long term (current) drug therapy; Z88.8 Allergy status to other drugs, medicaments and biological substances
CPT/HCPCS: 36415; 74176; 80053; 81001; 82274; 83690; 85007; 85025; 87040; 93005; 96361; 96365; 96375; J2405; J3480; J3490; J7030; 99285-25; G0378